=== PATIENT | female | born 2005 | race Caucasian/White ===

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

== ENCOUNTER → 2023-06-09 | Outpatient (CLI) | payer OTHER, MEDICAID, SELFPAY ==
--- NOTE | 2023-06-09 17:00 | RAD_ITS ---
INDICATION: ABDOMINAL PAIN EXAMINATION/TECHNIQUE: X-RAY - XR Abdomen 1 View COMPARISON: FINDINGS: Single supine view. The bowel gas pattern is normal. There is no bowel obstruction. Sensitivity for free air limited on supine view. No abnormal mass or calcification is seen. The lung bases are clear. RAD/Abdomen Single View IMPRESSION: Non-obstructive bowel gas pattern. Electronically Signed: Teresita Jaimes MD at 6:33 EDT ,
== END | disposition home or self-care (01) ==
PROVIDERS: PCP Pediatrics; Referring Provider Pediatrics; Visit Provider Pediatrics
DX: R10.9 Unspecified abdominal pain (principal)
CPT/HCPCS: 74018

== ENCOUNTER 2025-09-15 17:38 | Emergency (ER) | payer OTHER, SELFPAY ==
[2025-09-15 17:39] VITALS: BP 122/86; PULSE 119; RESP 16; TEMP 37.4; O2SAT 99; BMI 17.6
--- NOTE | 2025-09-15 19:23 | EX.ED.GENINJ ---
HPI History of Present Illness Chief Complaint: Nausea/Vomiting [facility] Medical History (Updated 09/15/25 @ 19:26 by Salud Sanches) Depression ADHD Home Medications ?Medication ?Instructions ?Recorded ?Last Taken ?Type albuterol sulfate 90 mcg/actuation inhalation 09/15/25 Unknown History aerosol inhaler metoclopramide HCl 5 mg tablet 5 mg PO Q8H PRN nausea and 09/15/25 Unknown Rx (Reglan) vomiting 7 days #20 tabs Allergy/AdvReac Type Severity Reaction Status Date / Time loratadine (From Claritin) Allergy Mild Hives Verified 09/15/25 17:40 Family History no significant family his Surgical History History of tonsillectomy and adenoidectomy Social History (Updated 09/15/25 @ 19:26 by Salud Sanches) household members: significant other housing: apartment Smoking Status: Current every day smoker tobacco type: e-cigarettes substance use type: does not use EXAM Physical Exam Const Vital Signs: 09/15/25 17:39 09/15/25 19:53 09/15/25 21:00 Temperature 99.3 F H Temperature Source Oral Pulse Rate 119 H 88 93 Respiratory Rate 16 20 H 16 Blood Pressure 122/86 H 110/70 115/76 Blood Pressure Mean 98 83 89 Pulse Ox 99 100 Oxygen Delivery Method Room Air Room Air [facility] MDM Narrative Medical decision making narrative: HISTORY OF PRESENT ILLNESS: Chief complaint: Nausea and vomiting 20-year-old female with no significant medical history presents with nausea and vomiting starting yesterday. She notes she communicated to local urgent care and they told her to come into the ED for IV fluids REVIEW OF SYSTEMS: Pertinent positives: Nausea and vomiting Pertinent negatives: Headache, fever, chest pain PHYSICAL EXAM: Nursing triage notes reviewed, Vital signs reviewed Constitutional: please see mdm HENT: MMM Eyes: Pupils equal round and reactive to light, Extraocular muscles intact Neck: No stridor, no JVD, full neck ROM Lungs: Clear to auscultation, No wheezing or rales. No increased work of breathing, no conversational dyspnea, no accessory muscle use, no nasal flaring. No respiratory distress noted Heart: Regular rate and rhythm, No murmurs, No rubs and No gallops, 2+ distal pulses (radial, femoral, posterior tibial) in all extremities Abdomen: Soft, there is no tenderness, rigidity, rebound or guarding, no obvious peritoneal signs, no palpable pulsatile abdominal masses, no auscultated abdominal bruit : No CVAT Extremities: No edema Neuro: No new focal neurological deficits, cranial nerves II through XII intact, 5/5 strength in all present extremities. Intact sensation to light touch in all present extremities, 2+ reflexes bilateral patella tendons. Skin: No rash or lesions noted MEDICAL DECISION MAKING: Chief Complaint: please see HPI External records reviewed: reviewed prior ED visit in which patient was prescribed Zofran 2 years ago Factors affecting care: None Social determinants of health: Denies illicit drug use, denies marijuana History obtained from others: none Consults: none [facility] Narrative: The patient was initially tachycardic with a heart rate of 119, borderline febrile with initial temperature 99.3 otherwise saturating well on room air and hemodynamically stable I considered the following differential diagnosis: Viral illness, pneumonia, dehydration I obtained a broad lab and imaging work to further determine if the patient was suffering from a life-threatening etiology. ALL IMAGES (IF OBTAINED) HAVE BEEN PERSONALLY REVIEWED AND INTERPRETED BY MYSELF. EKG with normal sinus rhythm at 83, no axis, no intervals, no STEMI CBC with no leukocytosis, no anemia or thrombocytopenia Urine test is negative COVID/flu/RSV positive for flu BMP without evidence of significant electrolyte abnormalities, no anion gap, no acute kidney injury. Urine is negative I have personally reviewed the patient's chest x-ray. Chest x-ray is unremarkable for pulmonary edema, pneumothorax, pneumonia or focal cardiopulmonary abnormality. The synthesis of the patient's history, physical exam, labs images suggest likely influenza A as a cause of her symptoms. On reevaluation the patient is able to tolerate p.o. Her initial tachycardia resolved after IV fluid hydration. She was written Reglan for home-going for nausea vomiting Introl. Strict return precaution were discussed. Work note provided The patient and/or family, caregivers express understanding. The patient and/or family, caregivers agrees with the plan. Shared decision making: I will have a discussion with the patient and or visitors regarding risk/benefits of further testing or admission. They will be made aware of of the risk/benefits inherent in this decision they will be given the opportunity to voice understanding. Total critical care time today provided was at least 0 minutes. This excludes separately billable procedures. Critical care time (if documented) is secondary to the patient having high probability of clinically significant/life threatening deterioration in the patient's condition which required my urgent intervention. Impression: 1. Nausea and vomiting 2. Dehydration 3. Influenza Dispo: Discharge home This note was generated with [employer] dictation software. It may contain incorrect words, spelling, and punctuation that were not noted in review of the chart prior to signing. Lab Data Labs: Laboratory Results - last 24 hr 09/15/25 09/15/25 19:43 19:49 WBC 2.5 L RBC 4.30 Hgb 13.8 Hct 39.5 MCV 91.9 MCH 32.1 H MCHC 34.9 RDW Std Deviation 40.3 RDW Coeff of Angela 12.2 Plt Count 143 L MPV 10.7 Immature Gran % (Auto) 0.400 Neut % (Auto) 50.0 Lymph % (Auto) 29.0 [place] % (Auto) 19.4 H Eos % (Auto) 0.8 Baso % (Auto) 0.4 Absolute Neuts (auto) 1.2 L Absolute Lymphs (auto) 0.72 L Nucleated RBC % 0 Sodium 138 Potassium 4.3 Chloride 103 Carbon Dioxide 25.2 Anion Gap 10 BUN 10 Creatinine 0.82 Estim Creat Clear Calc 86.81 Est GFR (MDRD) Non-Af 103 BUN/Creatinine Ratio 12.5 Glucose 68 L Calcium 9.3 Urine Test Negative Radiography Diagnostic Testing: Clinical Impression(s) from Imaging Studies Chest X-Ray 09/15/25 20:00 IMPRESSION: No Acute Findings. Reading Location: [facility] Discharge Plan Triage Chief Complaint: Nausea/Vomiting ED Provider: Nicolas Steiner Dx/Rx/DC Orders Instructions: ED Influenza (Adult) Prescriptions: New metoclopramide HCl [Reglan] 5 mg tablet 5 mg PO Q8H PRN (Reason: nausea and vomiting) 7 Days Qty: 20 0RF No Action albuterol sulfate 90 mcg/actuation HFA aerosol inhaler inhalation Primary Care Provider: Ani Link Referrals: Ani Link MD [Primary Care Provider, Pediatrics] Activity Restrictions/Additional Instructions: Thank you for trusting us with your care today! Your labs images are consistent with influenza. Influenza should run its course in approximately 7 to 14 days. Please take Reglan as needed for nausea vomiting control. Please try to increase your hydration Please take Tylenol (2 pills, 650 mg), ibuprofen (2 pills, 400 mg) every 6 hours as needed for pain and fever control. Please return to the emergency department if your symptoms change or worsen. Specifically if develop shortness of breath or if you lose consciousness. Please follow with your primary care physician for further outpatient evaluation and management. Print Language: Mongolian Disposition Disposition: Home, Self Care
--- NOTE | 2025-09-15 19:31 | EKG12_ITS ---
Test Reason : NAUSEA Blood Pressure : */* mmHG Vent. Rate : 83 BPM Atrial Rate : 83 BPM P-R Int : 136 ms QRS Dur : 86 ms QT Int : 360 ms P-R-T Axes : * 79 32 degrees QTcB Int : 423 ms Normal sinus rhythm Normal ECG Confirmed by Victor Manuel Hernandez ([id number]), science editor RUY LIND ([id number]) on 09/22/2025 6:50:09 AM Referred By: STEVE Confirmed By: Victor Manuel Hernandez
[2025-09-15] MEDS: 0.9% Normal Saline (1000mL) 1,000 ML 999 ML IV (19:48)
[2025-09-15 19:53] VITALS: BP 110/70; PULSE 88; RESP 20
[2025-09-15 19:56] LABS: Hematocrit 39.5 % (37-47); Hemoglobin 13.8 g/dL (12.0-15.0); Immature Granulocytes Count 0.010 X10^3/uL (0.0-0.0); Mean Corp Hgb Conc 34.9 g/dL (32-36); Mean Corpuscular Volume 91.9 fL (81-99); Mean Platelet Vol. 10.7 fl (6.2-12.0); NRBC Flagged by Analyzer 0 % (0-5); Platelet Count 143 K/mm3 (150-450); RBC Distribution Width CV 12.2 % (11.6-14.6); RBC Distribution Width SD 40.3 fl (35.1-43.9); Red Blood Count 4.30 M/mm3 (4.2-5.4); White Blood Count 2.5 K/mm3 (4.4-11.0)
[2025-09-15 20:00] LABS: Internal QC Validated? YES +Cl - CLEAR BKGD
--- NOTE | 2025-09-15 20:00 | RAD_ITS ---
PROCEDURE: CHEST 1 VIEW (PORTABLE) 09/15/2025 REASON FOR EXAM: COUGH TECHNIQUE: Frontal view of the chest. COMPARISON: None available. FINDINGS: Hardware: None. Heart: The heart size is normal. Lungs: The lungs are clear. No pneumothorax or pleural effusion. Bones: The bones are unremarkable. RAD/Chest 1 View (Portable) IMPRESSION: No Acute Findings. Reading [facility]
[2025-09-15 20:01] LABS: Pregnancy, Urine Negative Negative
--- OUTSIDE RECORDS SUMMARY | 2025-09-15 20:02 | XMS RPT_ITS | CCD ---
Author Organization [facility] Inform ion Partnership [facility] Care Team Providers Care Terrazzo Polisher Name Role Phone SONIA HERNANDEZ, DR ANI Martinez Primary Care Physician Ani Link Primary Care Provider Ani Link Primary Care Provider Ani Link Primary Care Provider Ani Link Primary Care Unavailable Jason Peck Attending Unavailable Ani Link Primary Care Unavailable Derrick Huitron Attending Unavailable Ani Link Primary Care Unavailable aCmilo Manuel Attending Unavailable Ani Link MD Primary Care Provider Ovi NUÑEZ-Rena VILLANUEVA Unavailable BHARGAVI JACKSON Attending Unavailable ANI LINK Primary Care Unavailable REFERRED, SELF Referring Unavailable REFERRED, SELF Referring Unavailable ANI LINK Attending Unavailable ANI LINK Primary Care Unavailable BHARGAVI JACKSON Referring Unavailable BHARGAVI JACKSON Attending Unavailable ANI LINK Primary Care Unavailable Ani Link MD Primary Care Provider ALESIA MCCLOUD Referring Unavailable ANI LINK Primary Care Unavailable ANI LIKN Primary Care Unavailable ALESIA MCCLOUD Attending Unavailable ANI LINK Primary Care Unavailable LIDIA LEAL Attending Unavailable Allergies Allergy Classification Reported Allergen(s) Allergy Type Date of Onset Reaction(s) Facility (12 sources) Loratadine; Translations: [LORATADINE] Drug Allergy 02-17-2007 [facility] Work Phone: Medications Current Medications Medication Drug Class(es) Dates Sig (Normalized) Sig (Original) [id number] 200 actuat albuterol 0.09 mg/actuat metered dose inhaler (8 sources) beta2-Adrenergic Agonist Start: 07-29-2021 take 2 puff(s) by inhalation every four hours as needed for wheezing albuterol HFA (PROVENTIL HFA, VENTOLIN HFA) 90 mcg/actuation inhaler Indications: Viral URI with cough , Wheezing Inhale 2 Puffs as instructed every 4 hours as needed for wheezing/shortness of breath. 1 Each 07/29/2021 Active Comment on above: Inhale 2 Puffs as in structed every 4 hours as needed for wheezing/shortness of breath. cephalexin 500 mg oral capsule (1 source) Cephalosporin Antibacterial Start: 05-16-2024 End: 05-23-2024 take 1 capsule by mouth three times daily cephALEXin (KEFLEX) 500 mg capsule Indications: Skin infection Take 1 capsule by mouth three times a day for 7 days. 21 capsule 05/16/2024 05/23/2024 Active ibuprofen 600 mg oral tablet (1 source) Nonsteroidal Anti-inflammatory Drug Start: 07-30-2020 take 1 tablet by mouth every six hours for pain ibuprofen (MOTRIN) 600 MG tablet take 1 tablet by mouth every 6 hours if needed for pain for UP TO 7 DAYS 0 07/30/2020 Active mupirocin 0.02 mg/mg topical ointment (1 source) RNA Synthetase Inhibitor Antibacterial Start: 05-16-2024 End: 05-26-2024 mupirocin (BACTROBAN) 2 % ointment Indications: Skin infection Apply to affected area three times a day for 10 days. 22 g 05/16/2024 05/26/2024 Active omeprazole 20 mg delayed release oral capsule (1 source) Proton Pump Inhibitor Start: 05-22-2021 take 1 capsule by mouth once daily omeprazole (PRILOSEC) 20 MG capsule Take 1 Capsule (20 mg) by mouth daily 30 Capsule 2 05/22/2021 Active ondansetron 4 mg disintegrating oral tablet (4 sources) Serotonin-3 Receptor Antagonist Start: 09-30-2023 take 1 tablet by mouth every eight hours as needed ondansetron orally disintegrating (ZOFRAN ODT) 4 mg disintegrating tablet Take 1 tablet by mouth every 8 hours as needed. 12 tablet 09/30/2023 Active Start: 12-29-2022 take 4 mg by mouth e very eight hours as needed Ondansetron Active 4 MG PO EVERY 8 HOURS NEEDED December 29, 2022 12:00am ondansetron HCl (ZOFRAN ORAL) Take by mouth. 0 Active Comment on above: Take by mouth. polyethylene glycol 3350 53817 mg powder for oral solution (4 sources) Osmotic Laxative Start: 06-09-2023 polyethylene glycol (MIRALAX;GLYCOLAX) 17 GM/SCOOP powder 0 06/09/2023 Active Start: 06-08-2023 polyethylene g lycol 3350 (MIRALAX) 17 gram/dose powder Indications: Acute constipation 17 grams a day mixed with water 510 g 06/08/2023 Active Comment on above: 17 grams a day mixed with water Zoloft (1 source) Serotonin Reuptake Inhibitor Start: 08-12-2018 Zoloft Oral, qDay Start Date: 08/12/18 Status: Ordered Completed/Discontinued Medications Medication Drug Class(es) Dates Sig (Normalized) Sig (Original) 12 hr dextromethorphan hydrobromide 60 mg / guaiFENesin 1200 mg extended release oral tablet (5 sources) Uncompetitive Z-hjblnr-K-aspartat e Receptor Antagonist, Sigma-1 Agonist Start: 07-29-2021 take 60-1200 mg by mouth every twelve hours Dextromethorpha n-guaiFENesin (MUCINEX DM) 60-1,200 mg tab ER 12 hr Indications: Viral URI with cough Take 1 tablet by mouth twice daily. 30 tablet 0 07/29/2021 Active Comment on above: Take 1 tablet by [facility] twice daily. Problems Active Problems Problem Classification Problem Date Documented Da te Episodic/Chronic Abdominal pain (7 sources) Abdominal pain; Translations: [Unspecified abdominal pain] Onset: 08-08-2022 Episodic Attention-deficit, conduct, and disruptive behavior disorders (10 sources) Attention deficit hyperactivity disorder; Translations: [Attention-deficit hyperactivity disorder, unspecified type] Onset: 09-04-2009 09-04-2009 Chronic Chronic obstructive pulmonary disease and bronchiectasis (1 source) Bronchitis, not specified as acute or chronic; Translations: [Sinobronchitis] Onset: 06-21-2025 Episodic Immunizations and screening for infectious disease (2 sources) Patient encounter status; Translations: [Encounter for screening for infections with a predominantly sexual mode of transmission] Episodic Menstrual disorders (2 sources) Dysmenorrhea; Translations: [Dysmenorrhea, unspecified] 08-07-2022 Chronic Open wounds of extremities (4 sources) Laceration of hand; Translations: [Laceration without foreign body of unspecified hand, initial encounter] Onset: 04-18-2022 04-22-2022 Episodic Other circulatory disease (1 source) Other specified symptoms and signs involving the circulatory and respiratory systems; Translations: [Rhonchi] Onset: 06-21-2025 Episodic Other gastrointestinal disorders (1 source) Acute constipation; Translations: [Constipation, unspecified] 06-08-2023 Episodic Other injuries and conditions due to external causes (1 source) Injury of right leg; Translations: [Unspecified injury of right lower leg, initial encounter] 05-16-2024 Episodic Other injuries and conditions due to external causes (2 sources) Injury of left knee; Translations: [Unspecified injury of left lower leg, initial encounter] 05-16-2024 Episodic Other non-traumatic joint disorders (1 source) Pain in right knee; Translations: [Pain in joint, lower leg] 12-19-2021 Episodic Other non-traumatic joint disorders (1 source) Pain in right shoulder; Translations: [Pain in joint, shoulder region] 07-30-2020 Episodic Other upper respiratory infections (1 source) Chronic sinusitis, unspecified; Translations: [Sinobronchitis] Onset: 06-21-2025 Chronic Other upper respiratory infections (2 sources) Acute upper respiratory infection; Translations: [Acute upper respiratory infection, unspecified] Onset: 12-23-2021 Episodic Skin and subcutaneous tissue infections (1 source) Infection of skin; Translations: [Local infection of the skin and subcutaneous tissue, unspecified] 05-16-2024 Episodic Superficial injury; contusion (3 sources) Contusion of hand; Translations: [Contusion of right hand, initial encounter] 11-18-2017 Episodic Past or Other Problems Problem Classification Problem Date Documented Da te Episodic/Chronic Nausea and vomiting (3 sources) Nausea; Translations: [Nausea] Onset: 02-10-2025 Episodic Residual codes; unclassified (9 sources) Sleep disorder; Translations: [Sleep disorder, unspecified] Onset: 09-04-2009 09-04-2009 Episodic Results Test Name Value Interpretation Reference Range Facility [facility] 06-21-2025 CNOV Office Visit ([facility]) MARE MANDUJANO ([id number]) 1 F Date Time Provider Department 06/21/25 1:45 PM ALESIA MCCLOUD During your visit today, we recorded the following information about you: Temperature Pulse Respiration Blood pressure 98.1 degrees 120/minute 18/minute 122/80 Weight Last Period 52 kg 11/30/22 Alesia Mccloud APRN.MUD ENGINEER 06/21/2025 3:02 PM Signed [facility] Subjective HPI HPI Mare Mandujano is a 20 year old female who presents today for CC of cough, wheezing, sob, congestion. This started 1.5 weeks ago. Has tried otc medication for relief. Symptoms are worsened by nothing. Risk factors sick exposures. Smoker. Denies possibility of being . .Patient presents with: Cough: Chest congestion x1.5 weeks PAST MEDICAL HISTORY Diagnosis Date ADHD (attention deficit hyperactivity disorder) No past surgical history on file. ALLERGIES Claritin [Loratadine] MEDICATIONS ondansetron orally disintegrating (ZOFRAN ODT) 4 mg disintegrating tablet Take 1 tablet by mouth every 8 hours as needed. (Patient not taking: Reported on 06/21/2025) polyethylene glycol 3350 (MIRALAX) 17 gram/dose powder 17 grams a day mixed with water (Patient not taking: Reported on 06/21/2025) albuterol HFA (PROVENTIL HFA, VENTOLIN HFA) 90 mcg/actuation inhaler Inhale 2 Puffs as instructed every 4 hours as needed for wheezing/shortness of breath. (Patient not taking: Reported on 12/19/2021 ) FAMILY HISTORY Problem Relation Age of Onset Cervical Cancer Mother Allergies Father Allergies Mother Cancer Paternal Grandmother Cancer Asthma Mother SOCIAL HISTORY[1] Review of Systems Constitutional: Negative for chills, fatigue and fever. HENT: Positive for rhinorrhea and sore throat. Negative for ear discharge, ear pain, sinus pressure and sinus pain. Eyes: Negative for discharge and redness. Respiratory: Positive for cough, shortness of breath and wheezing. Cardiovascular: Negative for chest pain. Skin: Negative for rash. Objective BP 122/80 Pulse 120 Temp 36.7 ?C (98.1 ?F) Resp 18 Wt 52 kg (114 lb 10.2 oz) LMP 11/30/2022 SpO2 97% Physical Exam Constitutional: General: She is not in acute distress. Appearance: She is not toxic-appearing or diaphoretic. HENT: Head: Normocephalic and atraumatic. Cardiovascular: Rate and Rhythm: Normal rate and regular rhythm. Heart sounds: Normal heart sounds, S1 normal and S2 normal. Pulmonary: Effort: Pulmonary effort is normal. Breath sounds: Wheezing (scattered bilat) and rhonchi (scattered bilat) present. No decreased breath sounds or rales. Neurological: Mental Status: She is alert and oriented to person, place, and time. {ASSESSMENT/PLAN: 1. Sinobronchitis - ICD9: 473.9, 490, ICD10: J32.9, J40 (primary diagnosis) - Will begin treatment with as per antibiotic as written, see orders - Supportive care with plenty of fluids, rest, and analgesia prn. - Follow up in 3-5 days if symptoms persist or worsen. - DOXYCYCLINE MONOHYDRATE 100 MG TABLET - PREDNISONE 10 MG TABLET - ALBUTEROL SULFATE HFA 90 MCG/ACTUATION AEROSOL INHALER 2. Rhonchi - ICD9: 786.7, ICD10: R09.89 - XR CHEST 2V FRONTAL/LAT IMPRESSION: No acute radiographic abnormality. Dictated by : MD Alesia SYLVESTER APRN.MUD ENGINEER History and Record Review External record(s) reviewed: prior outpatient record. Disposition The patient was discharged. Procedures [1] Social History Tobacco Use Smoking status: Every Day Passive exposure: Yes Smokeless tobacco: Current Tobacco comments: Vape Substance Use Topics Alcohol use: Never Drug use: Never Allergies As of Date: 06/21/2025 Noted Allergy Reaction CLARITIN (LORATADINE) 02/17/2007 4 - Hives Date Reviewed: 06/21/2025 Reviewed by: Rolan, Roxy, MA - Fully Assessed Reason for Visit: Cough [28] Cmt: Chest congestion x1.5 weeks Primary Visit Diagnosis:Sinobronchi tis [J32.9, J40] Other Visit Diagnosis:Rhonchi [R09.89] Order(s):XR CHEST 2V FRONTAL/LAT [[id number]] Order #: [id number]. #:[id number] doxycycline monohydrate 100 mg tabletTake 1 tablet by mouth two times a day for 7 days.Disp: 14 tabletRfl: 0 predniSONE (DELTASONE) 10 mg tabletTake 3 tablets by mouth once daily for 5 days. Take daily with food.Disp: 15 tabletRfl: 0 albuterol HFA (PROVENTIL HFA, VENTOLIN HFA) 90 mcg/actuation inhalerInhale 2 puffs as instructed every 4 hours as needed for wheezing/shortness of breath.Disp: 8 gRfl: 0 Prescriptions as of 06/21/2025 - doxycycline monohydrate 100 mg tablet Take 1 tablet by mouth two times a day for 7 days. - predniSONE (DELTASONE) 10 mg tablet Take 3 tablets by mouth once daily for 5 days. Take daily with food. - albuterol HFA (PROVENTIL HFA, VENTOLIN HFA) 90 mcg/actuation inhaler Inhale 2 puffs as instructed every 4 hours as needed for wheezing/shortne (more content not included)... Normal [facility] XR CHEST 2V FRONTAL/LATon XR CHEST 2V FRONTAL/LAT * * *Final Report* * * DATE OF EXAM: Jun 21 2025 2:03PM WOX 5291 - XR CHEST 2V FRONTAL/LAT / PROCEDURE REASON: Rhonchi * * * * Physician Interpretation * * * * EXAMINATION: CHEST RADIOGRAPH (2 VIEW FRONTAL and LATERAL) CLINICAL HISTORY: Rhonchi MQ: XC2_6 EXAM DATE/TIME: 06/21/2025 2:03 PM COMPARISON: No relevant prior studies available. RESULT: Lines, tubes, and devices: None. Lungs and pleura: No consolidation. No lung mass. No pleural effusion. No pneumothorax. Cardiomediastinal silhouette: Normal cardiomediastinal silhouette. Bones and soft tissues: Unremarkable. IMPRESSION: No acute radiographic abnormality. Inspector Bullet Slugs: KASIA Transcribe Date/Time: Jun 21 2025 2:05P Dictated by : WALLY LUZ MD This examination was interpreted and the report reviewed and electronically signed by: WALLY LUZ MD on Jun 21 2025 2:05PM EST [id number] Normal [facility] CNOVon 02-10-2025 CNOV Office Visit ([facility] ) MARE MANDUJANO ([id number]) 1 F Date Time Provider Department 02/10/25 5:15 PM [facility] During your visit today, we recorded the following information about you: Temperature Pulse Respiration Blood pressure 97.5 degrees 87/minute 18/minute 120/80 Weight 53.8 kg Lidia Leal APRN.MUD ENGINEER 02/10/2025 5:26 PM Signed [facility] Subjective Mare Mandujano is a 19 year old female. Patient presents with: Abdominal Pain: Lower abdominal pain x1 day HPI Nausea and Abdominal Pain: - Onset yesterday; feels better today. - Able to drink water today without emesis; has not eaten yet. - Urination is normal. - Symptoms are intermittent. - Describes abdominal discomfort as cramping. - Attributes symptoms to a gut issue and possible illness from classmates. - Suspects inadequate water intake may contribute to symptoms. Review of Systems Constitutional: (+) generalized discomfort Gastrointestinal: (+) nausea, (+) abdominal cramping, (-) vomiting, (-) severe pain Genitourinary: (-) urinary complaints Objective BP 120/80 Pulse 87 Temp 36.4 ?C (97.5 ?F) Resp 18 Wt 53.8 kg (118 lb 9.7 oz) LMP 11/30/2022 SpO2 98% Physical Exam General: No acute distress. Resp: Clear breath sounds bilaterally. Abd: Normoactive bowel sounds; mild discomfort with palpation, no severe pain. {1. Nausea (R11.0) - Symptoms improved today; able to tolerate water intake, no emesis reported. - Abdominal exam reveals normal bowel sounds, mild discomfort with palpation, no severe tenderness. - Advised rest, adequate hydration, and gradual introduction of bland foods. - Provided work note. and Recording using weeSpring software for draft documentation of the visit was discussed with the patient/authorized business services representative; all questions welcomed and answered. Patient/authorized business services representative agreed to proceed MDM Procedures Allergies As of Date: 02/10/2025 Noted Allergy Reaction CLARITIN (LORATADINE) 02/17/2007 4 - Hives Date Reviewed: 02/10/2025 Reviewed by: Mellissa Patel LPN - Fully Assessed Reason for Visit: Abdominal Pain [1] Cmt: Lower abdominal pain x1 day Visit Diagnosis:Nausea [R11.0] Prescriptions as of 02/10/2025 - ondansetron orally disintegrating (ZOFRAN ODT) 4 mg disintegrating tablet Take 1 tablet by mouth every 8 hours as needed. - polyethylene glycol 3350 (MIRALAX) 17 gram/dose powder 17 grams a day mixed with water - albuterol HFA (PROVENTIL HFA, VENTOLIN HFA) 90 mcg/actuation inhaler Inhale 2 Puffs as instructed every 4 hours as needed for wheezing/shortness of breath. Problem List As Of Date 02/10/2025 Noted Resolved Sleep Disorder [G47.9] 09/04/2009 ADHD (Attention Deficit Hyperactivity Disorder)*09/04/2009 Letter Text Encounter Status:Closed by LIDIA LEAL on 02/10/25 Normal [facility] No Panel Informationon 05-16 IMPRESSION: No acute osseous abnormality Inspector Bullet Slugs: KASIA Transcribe Date/Time: May 16 2024 2:06P Dictated by : ABIODUN CAMEJO MD This examination was interpreted and the report reviewed and electronically signed by: ABIODUN CAMEJO MD on May 16 2024 2:09PM [facility] DIVISION OF RADIOLOGY Radiology Study observation (narrative) [facility] No Panel InformationOrdered By: [facility]cf Provider on 05-16-2024 [facility] XR Knee - left 4 Viewson * * *Final Report* * * DATE OF EXAM: May 16 2024 2:03PM WOX 5202 - XR KNEE 4V AP/PA BOTH+LAT/LACHO LT / PROCEDURE REASON: Injury of left knee, initial encounter * * * * Physician Interpretation * * * * EXAMINATION: XR KNEE 4V AP/PA BOTH+LAT/LACHO LT, XR TIBIA FIBULA 2V AP/LAT RT CLINICAL HISTORY: Right lower extremity pain after trauma Technique: XR KNEE 4V AP/PA BOTH+LAT/LCAHO LT, XR TIBIA FIBULA 2V AP/LAT RT -- LEFT (accession [id number]), RIGHT (accession [id number]) with 4 (accession [id number]), 2 (accession [id number]) views on 4 (accession [id number]), 2 (accession [id number]) images Comparison: None RESULT: No acute fracture or dislocation. Joint spaces are maintained. DIVISION OF RADIOLOGY Provider, [facility] - 05/16/2024 * * *Final Report* * * DATE OF EXAM: May 16 2024 2:03PM WOX 5202 - XR KNEE 4V AP/PA BOTH+LAT/LACHO LT / PROCEDURE REASON: Injury of left knee, initial encounter * * * * Physician Interpretation * * * * EXAMINATION: XR KNEE 4V AP/PA BOTH+LAT/LACHO LT, XR TIBIA FIBULA 2V AP/LAT RT CLINICAL HISTORY: Right lower extremity pain after trauma Technique: XR KNEE 4V AP/PA BOTH+LAT/LACHO LT, XR TIBIA FIBULA 2V AP/LAT RT -- LEFT (accession [id number]), RIGHT (accession [id number]) with 4 (accession [id number]), 2 (accession [id number]) views on 4 (accession [id number]), 2 (accession [id number]) images Comparison: None RESULT: No acute fracture or dislocation. Joint spaces are maintained. IMPRESSION IMPRESSION: No acute osseous abnormality Inspector Bullet Slugs: PSCB Transcribe Date/Time: May 16 2024 2:06P Dictated by : ABIODUN CAMEJO MD This examination was interpreted and the report reviewed and electronically signed by: ABIODUN CAMEJO MD on May 16 2024 2:09PM [facility] XR Tibia and Fibula - right AP and Lateralon 05-16-2024 * * *Final Report* * * DATE OF EXAM: May 16 2024 2:03PM WOX 5266 - XR TIBIA FIBULA 2V AP/LAT RT / PROCEDURE REASON: Injury of right lower extremity, initial encounter * * * * Physician Interpretation * * * * EXAMINATION: XR KNEE 4V AP/PA BOTH+LAT/LACHO LT, XR TIBIA FIBULA 2V AP/LAT RT CLINICAL HISTORY: Right lower extremity pain after trauma Technique: XR KNEE 4V AP/PA BOTH+LAT/LACHO LT, XR TIBIA FIBULA 2V AP/LAT RT -- LEFT (accession [id number]), RIGHT (accession [id number]) with 4 (accession [id number]), 2 (accession [id number]) views on 4 (accession [id number]), 2 (accession [id number]) images Comparison: None RESULT: No acute fracture or dislocation. Joint spaces are maintained. DIVISION OF RADIOLOGY Provider, [facility] - 05/16/2024 * * *Final Report* * * DATE OF EXAM: May 16 2024 2:03PM WOX 5266 - XR TIBIA FIBULA 2V AP/LAT RT / PROCEDURE REASON: Injury of right lower extremity, initial encounter * * * * Physician Interpretation * * * * EXAMINATION: XR KNEE 4V AP/PA BOTH+LAT/LACHO LT, XR TIBIA FIBULA 2V AP/LAT RT CLINICAL HISTORY: Right lower extremity pain after trauma Technique: XR KNEE 4V AP/PA BOTH+LAT/LACHO LT, XR TIBIA FIBULA 2V AP/LAT RT -- LEFT (accession [id number]), RIGHT (accession [id number]) with 4 (accession [id number]), 2 (accession [id number]) views on 4 (accession [id number]), 2 (accession [id number]) images Comparison: None RESULT: No acute fracture or dislocation. Joint spaces are maintained. IMPRESSION IMPRESSION: No acute osseous abnormality Inspector Bullet Slugs: KASIA Transcribe Date/Time: May 16 2024 2:06P Dictated by : ABIODUN CAMEJO MD This examination was interpreted and the report reviewed and electronically signed by: ABIODUN CAMEJO MD on May 16 2024 2:09PM [facility] Progress Noteon 10-26-2023 [employer] Sergeant Authentication Interface Message Text Patient ID: Mare Mandujano is a 18 y.o. female. Her chief complaint(s) include: 18 YEAR WELL CHILD Assessment 1. Routine general medical examination at a health care facility 2. Acute vulvitis 3. control counseling 4. Gastroesophageal reflux disease without esophagitis 5. Pharyngitis, unspecified etiology 6. Anxiety with depression Plan Mare was seen today for 18 year well child. Diagnoses and associated orders for this visit: Routine general medical examination at a health care facility - PHQ9 Assessment With Score - Health Risk Assessment - TOSHA Acute vulvitis - AMB Referral To Obstetrics/Gynecology ; Future - nystatin (MYCOSTATIN) 195527 UNIT/GM OINT ointment; Apply to affected area 4 times daily for 14 days control counseling - AMB Referral To Obstetrics/Gynecology ; Future Gastroesophageal reflux disease without esophagitis - omeprazole (PRILOSEC) 20 MG capsule; Take 1 Capsule (20 mg) by mouth daily Pharyngitis, unspecified etiology - POCT ID NOW Rapid Strep A NAAT-Throat Only Anxiety with depression Discussed diet and exercise. Anticipatory guidance issues reviewed. Patient provided with list of counselors available that may help with her anxiety and depression. She denies any current suicidal thoughts or ideations but will want to monitor patient closely. Discussed need to try to limit or stop vaping and using the marijuana. Patient using these above to help manage stress and anxiety. She also complains of abdominal discomfort which in part may be due to use of the marijuana but had prescribed prilosec in the past which patient never tried. She is interested in seeing if helps with her abdominal pain so sent a new prescription for the prilosec in. Instructed to call if not seeing improvement with the medication. Anticipatory guidance issues reviewed. Patient referred to dinking machine operator to further discuss control that may work for her. She had side effects from last control. Did start patient on some topical nystatin to help with labial irritation. Also instructed patient to hold on shaving for now to allow area to heal. If going to continue to shave pubic area, instructed to make sure use razor that is sharp and clean. Patient also with pharyngitis. Strep test was negative. Will treat symptoms. Return in about 1 year (around 10/26/2024) for well check. Subjective She is unaccompanied. 18 YEAR WELL CHILD Home: Mare has an adult to turn to for help and is permitted and able to make independent decisions (planning to move out on her own). Mare does not eat meals with family, has no home risk identified and does not pay the bills. Education: Mare is in the work force. Eating: Mare eats regular meals including fruits and vegetables (poor appetite), eats breakfast (try to), drinks non-sweetened liquids and has a calcium source. Mare does not limit fast food (working on it: if eats out, will choose healthier options). Activities & Sports: Mare has a job ([employer] and will start at [employer]) and performs at least 1 hour of physical activity daily. Mare engages in screen time more than 2 hours daily, does not play team sports and does not have drivers license (has her school bus driver/mechanic's permit, gets around with her electric scooter). Drugs: Mare uses drugs (marijuana), uses alcohol (very seldom) and does vape. Mare does not use tobacco. Safety: Mare has a violence free home, has peer relationships free from violence and uses seat belt. Mare does not use helmet. Sex: The patient has a sexual partner. The patient is interested in both males and females. The patient's sexual orientation is bisexual. The patient's gender identity is cisgender. Typically, the patient uses condoms as current contraceptive method. (Patient off control currently/). The patient has not had an STD. STD screening completed within the last year. Suicidality: Mare has ways to cope with stress (some but not all are healthy), displays self-confidence (improving), has depression and has anxiety (more of an issue). Mare has no problems with sleep, has no suicidal ideation, has no homicidal ideation and is not engaged in counseling (patient admits to need of some counseling). PHQ-9 Score: 11 Menstruation (Menarche: age 10 LMP: 10/21/23) Menstruation: regular periods Output Urine and Stool Pattern: Urine and Stool Pattern: Normal stool pattern, constipation (sometimes diarrhea (patient thinks she may have irritable bowel syndrome)), normal urine pattern, no nocturnal enuresis. Stool Consistency: hard/firm Sleep Sleeping Difficulty: no difficulty sleeping Hours of sleep at a time: 8 Teen Anticipatory Guidance The following anticipatory guidance was reviewed during the visit: Nutrition: limit junk food/fast food and soft drinks. Safety: home safety and use safety helmet/gear with activities. Social: avoid or limit screen time and parental allan (more content not included)... Normal [facility] C-Reactive Proteinon 023 CRP [Mass/Vol] mg/L Normal 0.0-1.0 [facility] Comment on above: Order Comment: Relea se to patient->Automatic [id number]&Blood Result Comment: CRP determinations in neonates should be interpreted with caution. CRP may be elevated in circumstances not associated with inflammation (e.g. difficult delivery, pneumothorax). In premature neonates CRP levels may not rise to abnormal levels even if sepsis is present; some speculate that immature liver function decreases the ability to generate a CRP response. Performed By: #### C RP #### [place] [address] Comp Metabolic Panelon 06-10 Glucose [Mass/Vol] 82 mg/dL Normal 70-99 [facility] Comment on above: Order Comment: Relea se to patient->Automatic [id number]&Blood Result Comment: Crit gela for Diagnosis of Diabetes: Fasting Specimen (no caloric intake for at least 8 hours): <100 mg/dL Normal 100-125 mg/dL Increased risk for Diabetes >125 mg/dL Diagnostic for Diabetes Random Glucose (any time of day without regard to last meal): > or = 200 mg/dL plus Classic Symptoms of Diabetes Performed By: #### C MP #### [place] [address] Protein [Mass/Vol] 7.5 g/dL Normal 5.9-8.4 [facility] Comment on above: Order Comment: Relea se to patient->Automatic 67593&Blood Performed By: #### C MP #### [place] [address] Urea nitrogen [Mass/Vol] 10 mg/dL Normal 4-19 [facility] Comment on above: Order Comment: Relea se to patient->Automatic 19996&Blood Performed By: #### C MP #### [address] [place] [address] Albumin [Mass/Vol] 5.1 g/dL High 3.5-5.0 [facility] Comment on above: Order Comment: Relea se to patient->Automatic 65825&Blood Performed By: #### C MP #### [address] [place] [address] ALP [Catalytic activity/Vol] 49 U/L Normal 35-104 [facility] Comment on above: Order Comment: Relea se to patient->Automatic 62678&Blood Performed By: #### C MP #### [address] [place] [address] ALT [Catalytic activity/Vol] 10 U/L Normal 0-34 [facility] Comment on above: Order Comment: Relea se to patient->Automatic 92287&Blood Performed By: #### C MP #### [address] [place] [address] AST [Catalytic activity/Vol] 18 U/L Normal 0-31 [facility] Comment on above: Order Comment: Relea se to patient->Automatic 51030&Blood Performed By: #### C MP #### [address] [place] [address] Bili,Total 0.7 mg/dL Normal 0.0-1.0 [facility] Comment on above: Order Comment: Relea se to patient->Automatic 33324&Blood Performed By: #### C MP #### [address] [address] Calcium [Mass/Vol] 9.6 mg/dL Normal 7.6-11.0 [facility] Comment on above: Order Comment: Relea se to patient->Automatic 05277&Blood Performed By: #### C MP #### [address] [address] [place] [address] CO2 [Moles/Vol] 23.9 mmol/L Normal 22.0-29.0 [facility] Comment on above: Order Comment: Relea se to patient->Automatic 51779&Blood Performed By: #### C MP #### [place] [address] Creatinine [Mass/Vol] 0.67 mg/dL Normal 0.50-1.00 [facility] Comment on above: Order Comment: Relea se to patient->Automatic 56459&Blood Performed By: #### C MP #### [place] [address] Hemoglobin A1con 06-10-2023 HbA1c (Bld) [Mass fraction] 5.1 % Normal 0.0-5.6 [facility] Comment on above: Order Comment: Relea se to patient->Automatic 96572&Blood Result Comment: Refe rence Interval: <5.7% 5.7-6.4% Prediabetes > or = 6.5% Diabetes Targets for diabetes management: Type I <7.5% Type II <7.0% Performed By: #### H BA1C #### [place] [address] Immunoglobulin Aon 3 Immunoglobulin A 119 mg/dL Normal 59-337 [facility] Comment on above: Order Comment: Relea se to patient->Automatic 07676&Blood Performed By: #### I GA #### [place] [address] TSH with reflex T4FRon 06-10 TSH with reflex T4FR 1.170 uIU/mL Normal 0.300-4.200 [facility] Comment on above: Order Comment: Relea se to patient->Automatic 00382&Blood Performed By: #### T SHR #### [place] [address] Transglutaminase IgAon 06-10 Transglutaminase IgA <1.60 Normal 0.00-8.99 [facility] Comment on above: Order Comment: Relea se to patient->Automatic 31622&Blood Result Comment: NEGATIVE Interpretation of Results: Negative: <9.0 AU/mL Equivocal: 9.0-16.0 AU/mL Positive: >16.0 AU/mL Method: The anti-tTG antibodies were determined using an EDGAR-based commercially available kit (Eu-tTG [facility], [facility]). Performed By: #### T RGLA #### [place] [address] Vitamin D 25 OHon 06-10-2023 25 OH Vitamin D 26 ng/mL Low 30-100 [facility] Comment on above: Order Comment: Relea se to patient->Automatic 36212&Blood Result Comment: Refe rence ranges provided by [facility] Laboratory are based on Endocrine Society Guidelines: Level: Characterization < 21 ng/mL: Vitamin D deficiency 21-29 ng/mL: Suboptimal Vitamin D status 30-100 ng/mL: Optimal Vitamin D status >100 ng/mL: Potentially toxic Vitamin D effects Performed By: #### V 25DH #### [place] [address] C-reactive protein (Lab Millicent ect)on 06-09-2023 CRP [Mass/Vol] mg/L 0.0 - 1.0 mg/dL [facility] Comment on above: CRP determinations i n neonates should be interpreted with caution. CRP may be elevated in circumstances not associated with inflammation (e.g. difficult delivery, pneumothorax). In premature neonates CRP levels may not rise to abnormal levels even if sepsis is present; some speculate that immature liver function decreases the ability to generate a CRP response. C. trachomatis/GC PCR Panel on [facility] 06-09-2023 C. trachomatis/GC PCR Panel on [facility] Reason for preventing automatic release->Other Is this specimen being sent to an external lab?->No Release to patient->Manual release only [id number]&Urine-First Void^^^Urine&Urine C. trachomatis PCR on GeneX[facility]: NEGATIVE-Chlamydia trachomatis DNA: NOT DETECTED. Source: [facility] Collected: 06/09/23 16:11 Site: Urine Received : 06/09/23 21:49 C. trachomatis PCR on [facility] FINAL 06/09/23 23:52 NEGATIVE-Chlamydia trachomatis DNA: NOT DETECTED. - GC PCR on [facility] FINAL 06/09/23 23:57 NEGATIVE-Neisseria gonorrhea DNA: NOT DETECTED. - Method: DNA detection by RT PCR on a GeneXpert analyzer. - NOTE: This Amplified DNA Assay should not be used for the evaluation of suspected sexual abuse or for other medico-legal indications. Interpret results with caution! Volume of urine submitted for testing was greater than 50mL, which may result in reduced assay sensitivity. - Screening urine specimens for Chlamydia trachomatis and Neisseria gonorrhoeae using nucleic acid amplification is an accurate and sensitive method compared to standard techniques of detection of these pathogens. Because the pathogen is diluted in urine, it is somewhat less sensitive than a direct swab specimen evaluated by nucleic acid amplification techniques. Normal [facility] Comment on above: Performed By: #### C TNG #### [place] [address] Comp Metabolic Panelon 06-09 Chloride [Moles/Vol] 103 mmol/L Normal 96-108 [facility] Comment on above: Order Comment: Relea se to patient->Automatic [id number]&Blood Performed By: #### C MP #### [place] [address] Potassium [Moles/Vol] 4.0 mmol/L Normal 3.3-5.1 [facility] Comment on above: Order Comment: Relea se to patient->Automatic 06220&Blood Performed By: #### C MP #### [place] [address] Sodium [Moles/Vol] 139 mmol/L Normal 133-145 [facility] Comment on above: Order Comment: Relea se to patient->Automatic 35479&Blood Performed By: #### C MP #### [place] [address] Complete Blood Counton 06-09 Differential Complete Automated Normal [facility] Comment on above: Order Comment: Relea se to patient->Automatic 82930&Blood Performed By: #### C BC #### [address] [address] Basophils/100 WBC (Bld) 0.30 % Normal 0.00-1.00 [facility] Comment on above: Order Comment: Relea se to patient->Automatic 19547&Blood Performed By: #### C BC #### [address] [address] Eosinophils/100 WBC (Bld) 1.10 % Normal 0.00-3.00 [facility] Comment on above: Order Comment: Relea se to patient->Automatic 80213&Blood Performed By: #### C BC #### [address] [address] Erythrocyte distribution width (RBC) [Ratio] 12.4 % Normal 0.0-14.4 [facility] Comment on above: Order Comment: Relea se to patient->Automatic 99863&Blood Performed By: #### C BC #### [address] [address] Hematocrit (Bld) [Volume fraction] 40.8 % Normal 36.0-44.0 [facility] Comment on above: Order Comment: Relea se to patient->Automatic 19661&Blood Performed By: #### C BC #### [address] [address] Hemoglobin (Bld) [Mass/Vol] 14.1 g/dL Normal 12.0-15.0 [facility] Comment on above: Order Comment: Relea se to patient->Automatic 27243&Blood Performed By: #### C BC #### [address] [address] Immature granulocytes/100 WBC (Bld) 0.30 % Normal [facility] Comment on above: Order Comment: Relea se to patient->Automatic 87070&Blood Result Comment: Naila ture Granulocyte Percent includes promyelocytes, myelocytes, and metamyelocytes. IG% > 1.0 indicates a left shift is present. With automated differentials, bands are included in the neutrophil count and not in the Immature Granulocyte Percent. Performed By: #### C BC #### [address] [address] Lymphocytes/100 WBC (Bld) 33.8 % Normal 24.0-44.0 [facility] Comment on above: Order Comment: Relea se to patient->Automatic 60242&Blood Performed By: #### C BC #### [address] [address] MCH (RBC) [Entitic mass] 31.5 pg Normal 26.0-34.0 [facility] Comment on above: Order Comment: Relea se to patient->Automatic 18382&Blood Performed By: #### C BC #### [address] [address] MCHC 34.6 % Normal 31.0-37.0 [facility] Comment on above: Order Comment: Relea se to patient->Automatic 22278&Blood Performed By: #### C BC #### [address] [address] MCV (RBC) [Entitic vol] 91.3 fL Normal 80.0-100.0 [facility] Comment on above: Order Comment: Relea se to patient->Automatic 24497&Blood Performed By: #### C BC #### [address] [address] Monocytes/100 WBC (Bld) 6.30 % High 3.00-6.00 [facility] Comment on above: Order Comment: Relea se to patient->Automatic 98941&Blood Performed By: #### C BC #### [address] [address] Neutrophils (Bld) [#/Vol] 4.6 10*3/uL Normal 2.0-7.2 [facility] Comment on above: Order Comment: Relea se to patient->Automatic 33088&Blood Performed By: #### C BC #### [address] [address] Neutrophils/100 WBC (Bld) 58.2 % Normal 35.0-66.0 [facility] Comment on above: Order Comment: Relea se to patient->Automatic 65097&Blood Performed By: #### C BC #### [address] [address] Nucleated RBC/100 WBC (Bld) [Ratio] 0.0 % Normal -1.0-0.0 [facility] Comment on above: Order Comment: Relea se to patient->Automatic 26170&Blood Performed By: #### C BC #### [address] [address] Platelet mean volume (Bld) [Entitic vol] 11.5 fL Normal [facility] Comment on above: Order Comment: Relea se to patient->Automatic 59659&Blood Result Comment: MPV is platelet range and age dependent Performed By: #### C BC #### [address] [address] Platelets (Bld) [#/Vol] 198 10*3/uL Normal 150-450 [facility] Comment on above: Order Comment: Relea se to patient->Automatic 27080&Blood Performed By: #### C BC #### [address] [address] RBC 4.47 10E12/L Normal 4.00-4.90 [facility] Comment on above: Order Comment: Relea se to patient->Automatic 42605&Blood Performed By: #### C BC #### [facility] [address] [place] [address] WBC (Bld) [#/Vol] 7.8 10*3/uL Normal 4.5-11.0 [facility] Comment on above: Order Comment: Relea se to patient->Automatic 96224&Blood Performed By: #### C BC #### [facility] [address] [place] [address] Complete Blood Count with Di fferentialon 06-09-2023 Basophils/100 WBC (Bld) 0.30 % 0.00 - 1.00 % [facility] Differential Complete Automated Sdr on [facility] Eosinophils/100 WBC (Bld) 1.10 % 0.00 - 3.00 % [facility] Erythrocyte distribution width (RBC) [Ratio] 12.4 % 0.0 - 14.4 % [facility] Hematocrit (Bld) [Volume fraction] 40.8 % 36.0 - 44.0 % [facility] Hemoglobin (Bld) [Mass/Vol] 14.1 g/dL 12.0 - 15.0 g/dl [facility] Immature granulocytes/100 WBC (Bld) 0.30 % [facility] Comment on above: Immature Granulocyte Percent includes promyelocytes, myelocytes, and metamyelocytes. IG% > 1.0 indicates a left shift is present. With automated differentials, bands are included in the neutrophil count and not in the Immature Granulocyte Percent. Interpretation and review of laboratory results Abnormal [facility] Lymphocytes/100 WBC (Bld) 33.8 % 24.0 - 44.0 % [facility] MCH (RBC) [Entitic mass] 31.5 pg 26.0 - 34.0 pg [facility] MCHC 34.6 % 31.0 - 37.0 % [facility] MCV (RBC) [Entitic vol] 91.3 fL 80.0 - 100.0 fl [facility] Monocytes/100 WBC (Bld) 6.30 % High 3.00 - 6.00 % [facility] Neutrophils (Bld) [#/Vol] 4.6 10*3/uL [facility] Neutrophils/100 WBC (Bld) 58.2 % 35.0 - 66.0 % [facility] Nucleated RBC/100 WBC (Bld) [Ratio] 0.0 % -1.0 - 0.0 % [facility] Platelet mean volume (Bld) [Entitic vol] 11.5 fL [facility] Comment on above: MPV is platelet range and age dependent Platelets (Bld) [#/Vol] 198 10*3/uL [facility] RBC (Bld) [#/Vol] 4.47 10*6/uL [facility] WBC (Bld) [#/Vol] 7.8 10*3/uL [facility] Release to patient->Automatic [facility] LAB [facility] Comprehensive metabolic pane l (Lab Collect)on 06-09-2023 Albumin [Mass/Vol] 5.1 g/dL High 3.5 - 5.0 g/dL [facility] ALP [Catalytic activity/Vol] 49 U/L 35 - 104 U/L [facility] ALT [Catalytic activity/Vol] 10 U/L 0 - 34 U/L [facility] AST [Catalytic activity/Vol] 18 U/L 0 - 31 U/L [facility] Bilirubin [Mass/Vol] 0.7 mg/dL 0.0 - 1 .0 mg/dL [facility] Calcium [Mass/Vol] 9.6 mg/dL 7.6 - 11. 0 mg/dL [facility] Chloride [Moles/Vol] 103 mmol/L 96 - 10 8 mmol/L [facility] CO2 [Moles/Vol] 23.9 mmol/L 22.0 - 29.0 mmol/L [facility] Creatinine [Mass/Vol] 0.67 mg/dL 0.50 - 1.00 mg/dL [facility] Glucose [Mass/Vol] 82 mg/dL 70 - 99 mg/dL [facility] Comment on above: Criteria for Diagnos is of Diabetes: Fasting Specimen (no caloric intake for at least 8 hours): <100 mg/dL Normal 100-125 mg/dL Increased risk for Diabetes >125 mg/dL Diagnostic for Diabetes Random Glucose (any time of day without regard to last meal): > or = 200 mg/dL plus Classic Symptoms of Diabetes Potassium [Moles/Vol] 4.0 mmol/L 3.3 - 5.1 mmol/L [facility] Protein [Mass/Vol] 7.5 g/dL 5.9 - 8.4 g/dL [facility] Sodium [Moles/Vol] 139 mmol/L 133 - 145 mmol/L [facility] Urea nitrogen [Mass/Vol] 10 mg/dL 4 - 19 mg/dL [facility] Hemoglobin A1c (Lab Collect) on 06-09-2023 HbA1c Elph (Bld) [Mass fraction] 5.1 % 0.0 - 5.6 % [facility] Comment on above: Reference Interval: <5.7% 5.7-6.4% Prediabetes > or = 6.5% Diabetes Targets for diabetes management: Type I <7.5% Type II <7.0% Release to patient->Automatic [facility] Immunoglobulin Aon 3 Immunoglobulin A 119 mg/dL 59 - 337 mg/dL [facility] No Panel Informationon 06-09 Interpretation and review of laboratory results Abnormal [facility] Release to patient->Automatic [facility] Progress Noteon 06-09-2023 [employer] Authentication Interface Message Text Patient ID: Mare Mandujano is a 18 y.o. female. Her chief complaint(s) include: Abdominal Pain (X a year, getting worse since December, no pain at this moment) Assessment 1. Abdominal pain, unspecified abdominal location 2. Fatigue, unspecified type Plan Mare was seen today for abdominal pain. Diagnoses and associated orders for this visit: Abdominal pain, unspecified abdominal location - Immunoglobulin A; Future - Transglutaminase IgA; Future - Complete Blood Count with Differential; Future - C-reactive protein (Lab Collect); Future - Hemoglobin A1c (Lab Collect); Future - TSH with Reflex to T4, Free (Lab Collect); Future - Vitamin D 25 hydroxy (Lab Collect); Future - Comprehensive metabolic panel (Lab Collect); Future - POCT urine HCG - POCT urinalysis dipstick - C.trachomatis/GC PCR Panel - X-Ray Abdomen 1 View; Future - AMB Referral To Obstetrics/Gynecology ; Future Fatigue, unspecified type - Immunoglobulin A; Future - Transglutaminase IgA; Future - Complete Blood Count with Differential; Future - C-reactive protein (Lab Collect); Future - Hemoglobin A1c (Lab Collect); Future - TSH with Reflex to T4, Free (Lab Collect); Future - Vitamin D 25 hydroxy (Lab Collect); Future - Comprehensive metabolic panel (Lab Collect); Future - POCT urine HCG Return if symptoms worsen or fail to improve. Discussed fatigue and abdominal pain at length. No weight loss. Obtained labs and abdominal x-ray for further evaluation. X-ray unremarkable. Labs overall unremarkable as well- celiac negative, thyroid normal, CBC and CRP normal, HbA1c normal, CMP normal. Vitamin D level was slightly low, which could be contributing to fatigue. Will start vitamin D supplement. Urine hcg negative and GC/chlamydia negative. UA with no signs of infection. Recommended keeping abdominal pain diary to look for triggers. Can use miralax as needed to help with the difficulty stooling. May also get abdominal US due to duration of pain/symptoms. 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 Discussed importance of using contraception to prevent with having sex. Can discuss contraception with gynecology or can schedule a follow up appointment here to further discuss contraception. Counseled to use condoms with every sexual encounter to prevent and STIs. Subjective HPI Comments: Getting pains across lower abdomen, typically on right side, occasionally on left side. Has pain every day. Will wait it out. Unsure if anything makes it better. Tries not to take meds for it (ibuprofen, etc). Applying pressure to her stomach sometimes helps it feel better. First started about 1.5 years ago. Trouble stooling- sometimes soft, sometimes hard, sometimes feels like she can't go or it gets stuck. Sometimes liquid stools. Often feels like she can't get it all out. Typically stools every day. Feeling bloated and heavy. Gets pain in epigastric area sometimes. Not having reflux symptoms/acid in throat/burning feeling in chest. A few months ago, was 6 days late on her period (was very stressed). Last month, was 4 days late. Having sex with no protection. Used to do depo- stopped due to heavy breakthrough bleeding prior to next dose. Occasional pain with sex. Lower abdominal pain. Last sex was 2 days ago. No concern for STIs- was tested in the past year. Due for her period in a few days. Rides a scooter to work- 20 mph, when the sidewalks are bumpy, gets some right sided pain- stops her for a minute due to the pain. 8/10 pain. Doesn't happen every time, just sometimes with the bumping. Feeling a little nauseous a lot in the mornings and some other random times. For about the past year. No vomiting. Never has a lot of energy for the past year. Sometimes feels like her face gets overheated. Will feel shaky with anxiety sometimes. Or will get shaky if feels cold air in the room. Feels like her muscles tense up and get painful. Hands and feet get cold easily. Frequent urination and some urinary urgency. No pain with urination. Sometimes will hold urine too long, especially at work. Went to yesterday- told she needs to drink more water. Prescribed miralax- hasn't picked it up yet. Drinking 2 bottles water per day. Eating twice a day- typically eats egg and cheese biscuit in the mornings, OJ. Tries not to eat too many burgers. Will eat chicken sandwiches, occ salads at [employer]. Eats some at work, some at home. At home will eat fruits, chicken, some veggies, sometimes roast, potatoes. Hasn't lived on her own very long. Drinks juice 1-2 cups/day. Doesn't like tap water. Doesn't drink soda. Does vitamin water. Sometimes has abdominal/side discomfort when trying to sleep. Working morning shift at [employer]. Mom with IBS and vitamin B12 deficiency (not vegetarian). She is unaccompanied. Abdominal Pain The onset has been v (more content not included)... Normal [facility] [facility] TSH with Reflex to T4, Free (Lab Collect)on 06-09-2023 TSH with reflex to T4, Free 1.170 [facility] Vitamin D 25 hydroxy (Lab Co llect)on 06-09-2023 25 [place] Vitamin D 26 ng/mL Low 30 - 100 ng/mL [facility] Comment on above: Reference ranges pro vided by [facility] Laboratory are based on Endocrine Society Guidelines: Level: Characterization < 21 ng/mL: Vitamin D deficiency 21-29 ng/mL: Suboptimal Vitamin D status 30-100 ng/mL: Optimal Vitamin D status >100 ng/mL: Potentially toxic Vitamin D effects Abdomen/Pelvis W IV Cont ONL Yon 12-29-2022 Abdomen/Pelvis W IV Cont ONLY [facility] Imaging Services [address] [place] [address] Abdomen/Pelvis W IV Cont ONLY MR#: [id number] Acct: [id number] Name: MARE MANDUJANO Rep #: [id number] : 2005 F 17 From: Henri Osorio PCP: Dr. Ani Link MD Status: REG ER Study: Abdomen/Pelvis W IV Cont ONLY Date of Exam: Exam# [id number] Ordering Dr: Camilo Manuel MD EXAM: CT ABDOMEN AND PELVIS WITH INTRAVENOUS CONTRAST CLINICAL INDICATION: pain, RLQ TECHNIQUE: Helically acquired images were obtained of the abdomen and pelvis with intravenous contrast. This CT exam was performed using one or more of the following dose reduction techniques: automated exposure control, adjustment of the mA and/or kV according to patient size, and/or use of iterative reconstruction technique. This report was created using [employer] report generation technology. CONTRAST: IV 100mL Isovue-370 RADIATION DOSE: CTDIvol = 6.05 mGy, DLP = 276.63 mGy-cm COMPARISON: None. FINDINGS: LOWER THORAX: Unremarkable. Lung bases are clear. No cardiomegaly. No significant pericardial effusion. ABDOMEN: LIVER: Unremarkable. Homogeneous. No focal mass. GALLBLADDER AND BILE DUCTS: Unremarkable. No calcified gallstones. No gallbladder distention or wall edema. No intra- or extrahepatic biliary ductal dilation. PANCREAS: Unremarkable. No focal cystic or solid mass. SPLEEN: Unremarkable. Normal size without focal cystic or solid mass. ADRENALS: Unremarkable. No nodules. KIDNEYS AND URETERS: Unremarkable. Normal renal size and position. No hydronephrosis. STOMACH AND BOWEL: Unremarkable. No stomach or bowel distention. No focal inflammatory change. PELVIS: APPENDIX: The appendix is visualized and is normal. BLADDER: Unremarkable. REPRODUCTIVE: Unremarkable as visualized. No mass. ABDOMEN and PELVIS: INTRAPERITONEAL SPACE: There is free fluid in the pelvis. This can be physiologic. No free air. BONES/JOINTS: Unremarkable. No suspicious lytic or blastic abnormality. SOFT TISSUES: Unremarkable. No discrete abdominal or pelvic wall hernia. VASCULATURE: Unremarkable. Abdominal aorta is non-dilated. LYMPH NODES: Unremarkable. No enlarged lymph nodes. CT/Abdomen/Pelvis W IV Cont ONLY IMPRESSION: 1. The appendix is visualized and is normal. 2. There is free fluid in the pelvis. This can be physiologic. Electronically Signed: Henri Sahu MD at 19:12 EDT , CC: Dr. Ani Link MD; Dr. Camilo Manuel MD Inspector [employer]: Signed Normal [facility] CBC W/Diff, Automatedon 12-20 0-2022 Absolute Lymph 1.52 X10 3/uL Normal 0.83-4.51 [facility] Comment on above: Performed By: #### L 500.4050, L100.0100, L700.6800 #### [facility] [address] [place], [address] Absolute Neut 5.1 X10 3/uL Normal 2.0-7.7 [facility] Comment on above: Performed By: #### L 500.4050, L100.0100, L700.6800 #### [facility] [address] [place], [address] Basophils/100 WBC (Bld) 0.1 % Normal 0-1 [facility] Comment on above: Performed By: #### L 500.4050, L100.0100, L700.6800 #### [facility] [address] [place], [address] Eosinophils/100 WBC (Bld) 1.3 % Normal 0-5 [facility] Comment on above: Performed By: #### L 500.4050, L100.0100, L700.6800 #### [facility] [address] [place], [address] Erythrocyte distribution width (RBC) [Ratio] 11.9 % Normal 11.6-14.6 [facility] Comment on above: Performed By: #### L 500.4050, L100.0100, L700.6800 #### [facility] [address] [place], [address] Hematocrit (Bld) [Volume fraction] 37.9 % Normal 37-47 [facility] Comment on above: Performed By: #### L 500.4050, L100.0100, L700.6800 #### [facility] [address] [place], [address] Hemoglobin (Bld) [Mass/Vol] 13.1 g/dL Normal 12.0-15.0 [facility] Comment on above: Performed By: #### L 500.4050, L100.0100, L700.6800 #### [facility] [address] [place], [address] IG% 0.300 Normal 0.0-0.9 [facility] Comment on above: Result Comment: IG% - Immature Granulocytes (promyelocytes, myelocytes and metamyelocytes) > 1% indicates that a LEFT SHIFT is Present. Performed By: #### L 500.4050, L100.0100, L700.6800 #### [facility] [address] [place], [address] Lymphocytes/100 WBC (Bld) 21.5 % Normal 19-41 [facility] Comment on above: Performed By: #### L 500.4050, L100.0100, L700.6800 #### [facility] [address] [place], [address] MCH (RBC) [Entitic mass] 31.4 pg Normal 27.0-32.0 [facility] Comment on above: Performed By: #### L 500.4050, L100.0100, L700.6800 #### [facility] [address] [place], [address] MCHC (RBC) [Mass/Vol] 34.6 g/dL Normal 32-36 [facility] Comment on above: Performed By: #### L 500.4050, L100.0100, L700.6800 #### [facility] [address] [place], [address] MCV (RBC) [Entitic vol] 90.9 fL Normal 81-99 [facility] Comment on above: Performed By: #### L 500.4050, L100.0100, L700.6800 #### [facility] [address] [place], [address] Monocytes/100 WBC (Bld) 5.4 % Normal 0-10 [facility] Comment on above: Performed By: #### L 500.4050, L100.0100, L700.6800 #### [facility] [address] [place], [address] Neutrophils/100 WBC (Bld) 71.4 % High 47-70 [facility] Comment on above: Performed By: #### L 500.4050, L100.0100, L700.6800 #### [facility] [address] [place], [address] Nucleated RBC (Bld) [#/Vol] 0 10*3/uL Normal 0-5 [facility] Comment on above: Performed By: #### L 500.4050, L100.0100, L700.6800 #### [facility] [address], [address] Platelet mean volume (Bld) [Entitic vol] 10.4 fL Normal 6.2-12.0 [facility] Comment on above: Performed By: #### L 500.4050, L100.0100, L700.6800 #### [facility] [address] [place], [address] Platelets (Bld) [#/Vol] 189 10*3/uL Normal 150-450 [facility] Comment on above: Performed By: #### L 500.4050, L100.0100, L700.6800 #### [facility] [address] [place], [address] RBC (Bld) [#/Vol] 4.17 10*6/uL Low 4.2-5.4 [facility] Comment on above: Performed By: #### L 500.4050, L100.0100, L700.6800 #### [facility] [address] [place], [address] RDW SD 39.8 fl Normal 35.1-43.9 [facility] Comment on above: Performed By: #### L 500.4050, L100.0100, L700.6800 #### [facility] [address] [place], [address] WBC (Bld) [#/Vol] 7.1 10*3/uL Normal 4.4-11.0 [facility] Comment on above: Performed By: #### L 500.4050, L100.0100, L700.6800 #### [facility] [address] [place], [address] Comprehensive Metabolic Prof ilon 12-29-2022 Albumin [Mass/Vol] 3.7 g/dL Normal 3.2-5.0 [facility] Comment on above: Performed By: #### L 500.4050, L100.0100, L700.6800 ####[facility] [address] [place], [address] Albumin/Globulin [Mass ratio] 1.2 {ratio} Normal 0.9-2.4 [facility] Comment on above: Performed By: #### L 500.4050, L100.0100, L700.6800 ####[facility] [address] [place], [address] ALK P 51 U/L Normal 45-117 [facility] Comment on above: Performed By: #### L 500.4050, L100.0100, L700.6800 ####[facility] [address] [place], [address] ALT [Catalytic activity/Vol] 19 U/L Normal 13-56 [facility] Comment on above: Performed By: #### L 500.4050, L100.0100, L700.6800 ####[facility] [address] [place], [address] AST [Catalytic activity/Vol] 13 U/L Low 15-37 [facility] Comment on above: Performed By: #### L 500.4050, L100.0100, L700.6800 ####[facility] [address] [place], [address] Bilirubin [Mass/Vol] 0.40 mg/dL Normal 0.20-1.00 [facility] Comment on above: Result Comment: For patients on eltrombopag therapy, use of Dimension [place] TBIL is not recommended. Performed By: #### L 500.4050, L100.0100, L700.6800 ####[facility] [address] [place], [address] BUN/CRE 11.3 RATIO Normal 10-20 [facility] Comment on above: Performed By: #### L 500.4050, L100.0100, L700.6800 ####[facility] [address] [place], [address] CA,Total 8.5 mg/dL Normal 8.5-10.1 [facility] Comment on above: Performed By: #### L 500.4050, L100.0100, L700.6800 ####[facility] [address] [place], [address] Chloride [Moles/Vol] 110 mmol/L High 98-107 [facility] Comment on above: Performed By: #### L 500.4050, L100.0100, L700.6800 ####[facility] [address] [place], [address] CO2 [Moles/Vol] 26.0 mmol/L Normal 21.0-32.0 [facility] Comment on above: Performed By: #### L 500.4050, L100.0100, L700.6800 ####[facility] [address] [place], [address] Creatinine [Mass/Vol] 0.70 mg/dL Normal 0.55-1.02 [facility] Comment on above: Result Comment: The validity of the calculated GFR GFRAA in patients over 70 years has not been determined. Clinical correlation is essential. Performed By: #### L 500.4050, L100.0100, L700.6800 ####[facility] [address] [place], [address] ECRCL 115.61 ml/min Normal [facility] Comment on above: Performed By: #### L 500.4050, L100.0100, L700.6800 ####[facility] [address] [place], [address] EST GFR - AA 137 mL/min Normal >60 [facility] Comment on above: Result Comment: Afri can Italian GFR Calc Performed By: #### L 500.4050, L100.0100, L700.6800 ####[facility] [address] [place], [address] GAP 2 Low 5-15 [facility] Comment on above: Performed By: #### L 500.4050, L100.0100, L700.6800 ####[facility] [address] [place], [address] GFR/1.73 sq M.predicted among non-blacks MDRD (S/P/Bld) [Vol rate/Area] 113 mL/min/{1.73_m2} Normal >60 [facility] Comment on above: Result Comment: Non- GFR Calc Performed By: #### L 500.4050, L100.0100, L700.6800 ####[facility] [address] [place], [address] Globulin (S) [Mass/Vol] 3.1 g/dL Normal 2.2-4.2 [facility] Comment on above: Performed By: #### L 500.4050, L100.0100, L700.6800 ####[facility] [address] [place], [address] Glucose [Mass/Vol] 92 mg/dL Normal 74-106 [facility] Comment on above: Performed By: #### L 500.4050, L100.0100, L700.6800 ####[facility] [address] [place], [address] Potassium [Moles/Vol] 3.7 mmol/L Normal 3.5-5.1 [facility] Comment on above: Performed By: #### L 500.4050, L100.0100, L700.6800 ####[facility] [address] [place], [address] Sodium [Moles/Vol] 138 mmol/L Normal 136-145 [facility] Comment on above: Performed By: #### L 500.4050, L100.0100, L700.6800 ####[facility] [address] [place], [address] T PROT 6.8 g/dL Normal 6.4-8.2 [facility] Comment on above: Performed By: #### L 500.4050, L100.0100, L700.6800 ####[facility] [address] [place], [address] Urea nitrogen [Mass/Vol] 8 mg/dL Normal 7-18 [facility] Comment on above: Performed By: #### L 500.4050, L100.0100, L700.6800 ####[facility] [address] [place], [address] Emergency Department Summary on 12-29-2022 Emergency Department Summary [facility] Medical Records Department [address] [place] [address] Emergency Department Summary 12/29/22 MR#: [id number] Acct: [id number] Name: MARE MANDUJANO Rep #: [id number] : 2005 17 From: Camilo Manuel MD PCP: Dr. Ani Link MD Status:REG ER Location: ED HPI HPI - GI History of Present Illness Chief Complaint: Abd Pain Informant: patient Narrative Narrative: Patient presents with abdominal pain nausea vomiting and some mild diarrhea. She states this started a little less than 24 hours ago. She states it was just a little bit sore down at the right lower quadrant to the right middle abdomen area. She went to sleep overnight. It was still there in the morning and was a little bit worse. She was not really nauseated but after she ate it caused her to vomit. Her appetite is a little bit down but not completely gone. She has vomited another time. She thinks she has had a fever as she has felt hot and cold. She was at [facility] urgent care and they evidently recorded a fever there but she does not recall what that was. Patient has no history of abdominal surgery. Only surgeries tonsils and adenoids. She denies urinary symptoms. She denies vaginal discharge or bleeding. She is not on any meds including no control. [facility] Medical History ADHD Home Medications ondansetron 4 mg disintegrating tablet 4 mg PO Q8H PRN PRN Nausea #10 tabs 12/29/22 [Rx Last Taken Unknown] Allergy/AdvReac Type Severity Reaction Status Date / Time No Known Allergies Allergy Verified 12/29/22 16:39 Surgical History History of tonsillectomy and adenoidectomy Social History Smoking Status: Current some day smoker tobacco type: e-cigarettes substance use type: does not use ROS ROS ED Constitutional Constitutional ED: Reports subjective ENT ENT ED: Denies sore throat Cardiovascular Cardiovascular: Denies chest pain Respiratory/Chest Respiratory/Chest: Denies cough or dyspnea Gastrointestinal Gastrointestinal: Reports abdominal pain, diarrhea, nausea and vomiting; Denies constipation or melena Genitourinary Genitourinary ED: Denies dysuria, hematuria or urinary frequency Musculoskeletal Musculoskeletal: Denies back pain or myalgias Integumentary Denies rash Neurologic Neurologic: Denies headache(s) Endocrine Endocrinology: Denies polydipsia or polyuria Allergic/Immunologic Allergic/Immunologic ED: Denies urticaria EXAM Physical Exam Narrative Exam Narrative: Patient is doing on bed. She is holding empty emesis bag. No acute distress. HEENT shows mildly dry mucous membranes Neck is supple. Lungs are clear. She takes good normal deep breaths without pain. Saturations normal at 100% on room air. Heart is regular. Rate of about 100. I hear no murmur gallop or rub. Abdomen is soft. Bowel sounds seem normal. She does have some mild tenderness toward the right lower quadrant region. There is no rebound guarding or mass though. No CVA tenderness Extremities show no rash or swelling Neurologically she is awake alert and appropriate. Const Vital Signs: 12/29/22 16:37 Temperature 98.5 F Temperature Source Temporal Pulse Rate 114 H Respiratory Rate 16 Blood Pressure 140/85 H Blood Pressure Mean 103 Pulse Ox 100 Oxygen Delivery Method Room Air MDM MDM MDM Narrative Medical decision making narrative: Patient CBC showed no acute process including normal white count Patient's electrolytes were good without signs of dehydration. Liver function tests were normal. New line was negative Urinalysis was clean My independent interpretation of the CT showed no acute process. No inflammatory changes noted toward the right lower quadrant. Oh final reading by radiology was no acute process but there was a small amount of free fluid in the pelvis. Patient's recheck. She states she gets some pain in her chest when she vomits. But she is not vomiting blood. She is feeling better. We will get her home on meds for nausea. She now states that she thinks she likely has irritable bowel because she gets things like this on occasion but this was worse than normal. She may very well have a viral syndrome also. Lab Data Labs: Laboratory Results - last 24 hr 12/29/22 12/29/22 12/29/22 17:09 17:42 17:42 WBC 7.1 RBC 4.17 L Hgb 13.1 Hct 37.9 MCV 90.9 MCH 31.4 MCHC 34.6 RDW Std Deviation 39.8 RDW Coeff of Angela 11.9 Plt Count 189 MPV 10.4 Immature Gran % (Auto) 0.300 Neut % (Auto) 71.4 H Lymph % (Auto) 21.5 [place] % (Auto) 5.4 Eos % (Auto) 1.3 Baso % (Auto) 0.1 (more content not included)... Normal [facility] ,Serum,hCG Quali.on 12-29-2022 HCG, SERUM QUAL Negative Normal [facility] Comment on above: Performed By: #### L 500.4050, L100.0100, L700.6800 ####[facility] [address] [place], [place], [id number] Urinalysis, Completeon 12-29 BACTERIA 1+ /hpf Normal None Seen [facility] Comment on above: Order Comment: JARAD CTOR TO SPECIFY Performed By: #### L 400.0001 #### [facility] [address] [place], [address] EPI,SQUAMOUS 0-5 SEEN Normal -10 [facility] Comment on above: Order Comment: COLLE CTOR TO SPECIFY Performed By: #### L 400.0001 #### [facility] [address] [place], [address] WBC 0-5 SEEN Normal 0-5 [facility] Comment on above: Order Comment: COLLE CTOR TO SPECIFY Performed By: #### L 400.0001 #### [facility] [address] [place], [address] Mucus Ql (Urine sed) 0 SEEN Normal [facility] Comment on above: Order Comment: COLLE CTOR TO SPECIFY Performed By: #### L 400.0001 #### [facility] [address], [address] RBC 0 SEEN Normal 0-5 [facility] Comment on above: Order Comment: COLLE CTOR TO SPECIFY Performed By: #### L 400.0001 #### [facility] [address] [place], [address] Absolute lymphocyte counton 07-30-2022 Lymphocytes Auto (Unsp spec) [#/Vol] 1.31 10*3/uL 0.83-4.51 [facility] Work Phone: Basic Metabolic Profile (BMP )on 07-30-2022 BUN/CRE 9.1 RATIO Low 10-20 [facility] Comment on above: Performed By: #### L 700.6800, L100.0100, L500.2500 #### [facility] [address] [place], [address] CA,Total 8.7 mg/dL Normal 8.5-10.1 [facility] Comment on above: Performed By: #### L 700.6800, L100.0100, L500.2500 #### [facility] [address] [place], [address] Chloride [Moles/Vol] 107 mmol/L Normal 98-107 [facility] Comment on above: Performed By: #### L 700.6800, L100.0100, L500.2500 #### [facility] [address] [place], [address] CO2 [Moles/Vol] 28.0 mmol/L Normal 21.0-32.0 [facility] Comment on above: Performed By: #### L 700.6800, L100.0100, L500.2500 #### [facility] [address] [place], [address] Creatinine [Mass/Vol] 0.77 mg/dL Normal 0.55-1.02 [facility] Comment on above: Result Comment: The validity of the calculated GFR GFRAA in patients over 70 years has not been determined. Clinical correlation is essential. Performed By: #### L 700.6800, L100.0100, L500.2500 #### [facility] [address] [place], [address] ECRCL 105.19 ml/min Normal [facility] Comment on above: Performed By: #### L 700.6800, L100.0100, L500.2500 #### [facility] [address] [place], [address] EST GFR - AA 124 mL/min Normal >60 [facility] Comment on above: Result Comment: Afri can Italian GFR Calc Performed By: #### L 700.6800, L100.0100, L500.2500 #### [facility] [address] [place], [address] GAP 6 Normal 5-15 [facility] Comment on above: Performed By: #### L 700.6800, L100.0100, L500.2500 #### [facility] [address] [place], [address] GFR/1.73 sq M.predicted among non-blacks MDRD (S/P/Bld) [Vol rate/Area] 103 mL/min/{1.73_m2} Normal >60 [facility] Comment on above: Result Comment: Non- GFR Calc Performed By: #### L 700.6800, L100.0100, L500.2500 #### [facility] [address] [place], [address] Glucose [Mass/Vol] 104 mg/dL Normal 74-106 [facility] Comment on above: Result Comment: Fast ing Glucose result from 100 to 125 mg/dL suggests IMPAIRED HOMEOSTASIS per A.D.A. criteria. Performed By: #### L 700.6800, L100.0100, L500.2500 #### [facility] [address] [place], [address] Potassium [Moles/Vol] 3.9 mmol/L Normal 3.5-5.1 [facility] Comment on above: Performed By: #### L 700.6800, L100.0100, L500.2500 #### [facility] [address] [place], [address] Sodium [Moles/Vol] 141 mmol/L Normal 136-145 [facility] Comment on above: Performed By: #### L 700.6800, L100.0100, L500.2500 #### [facility] [address] [place], [address] Urea nitrogen [Mass/Vol] 7 mg/dL Normal 7-18 [facility] Comment on above: Performed By: #### L 700.6800, L100.0100, L500.2500 #### [facility] [address] [place], [address] Basophil percentageon 2021 Basophil percentage 0-5 SEEN /hpf 0-5 [facility] Work Phone: Basophils/100 WBC (Bld) 0.2 % 0-1 [facility] Work Phone: Chloride [Moles/Vol] 107 mmol/L 98-107 [facility] Work [facility]: Eosinophils/100 WBC (Bld) 2.0 % 0-5 [facility] Work Phone: Glucose [Mass/Vol] 104 mg/dL 74-106 [facility] Work Phone: Comment on above: Fasting Glucose resu lt from 100 to 125 mg/dL suggests IMPAIRED HOMEOSTASIS per A.D.A. criteria. Neutrophils (Bld) [#/Vol] 4.1 10*3/uL 2.0-7.7 [facility] Work Phone: Neutrophils/100 WBC (Bld) 68.8 % 47-70 [facility] Work Phone: Potassium [Moles/Vol] 3.9 mmol/L 3.5-5.1 [facility] Work Phone: Sodium [Moles/Vol] 141 mmol/L 136-145 [facility] Work Phone: WBC (Bld) [#/Vol] 5.9 10*3/uL 4.4-11.0 [facility] Work Phone: Beta hCG serum qualon 2021 Beta HCG ( test) Ql Negative [facility] Work Phone: Bilirubin Test strip Ql (U)o n 07-30-2022 Bilirubin Ql (U) Negative Negative [facility] Work Phone: Blood erythrocytes count (nu mber/volume)on 07-30-2022 RBC (Bld) [#/Vol] 4.46 10*6/uL 4.2-5.4 [facility] Work Phone: Blood hemoglobin measurement (mass/volume)on 07-30-2022 Hemoglobin (Bld) [Mass/Vol] 13.6 g/dL 12.0-15.0 [facility] Work Phone: Blood lymphocytes/100 leukoc yteson 07-30-2022 Lymphocytes/100 WBC (Bld) 22.1 % 19-41 [facility] Work Phone: [phone] Blood monocytes/100 leukocyt eson 07-30-2022 Monocytes/100 WBC (Bld) 6.6 % 0-10 [facility] Work Phone: [phone] Blood platelet mean volumeon 07-30-2022 Platelet mean volume (Bld) [Entitic vol] 10.4 fL 6.2-12.0 [facility] Work Phone: [phone] CBC W/Diff, Automatedon 0 Absolute Lymph 1.31 X10 3/uL Normal 0.83-4.51 [facility] Comment on above: Performed By: #### L 700.6800, L100.0100, L500.2500 #### [facility] [address] [place], [address] Absolute Neut 4.1 X10 3/uL Normal 2.0-7.7 [facility] Comment on above: Performed By: #### L 700.6800, L100.0100, L500.2500 #### [facility] [address] [place], [address] Basophils/100 WBC (Bld) 0.2 % Normal 0-1 [facility] Comment on above: Performed By: #### L 700.6800, L100.0100, L500.2500 #### [facility] [address] [place], [address] Eosinophils/100 WBC (Bld) 2.0 % Normal 0-5 [facility] Comment on above: Performed By: #### L 700.6800, L100.0100, L500.2500 #### [facility] [address] [place], [address] Erythrocyte distribution width (RBC) [Ratio] 12.3 % Normal 11.6-14.6 [facility] Comment on above: Performed By: #### L 700.6800, L100.0100, L500.2500 #### [facility] [address] [place], [address] Hematocrit (Bld) [Volume fraction] 40.3 % Normal 37-47 [facility] Comment on above: Performed By: #### L 700.6800, L100.0100, L500.2500 #### [facility] [address] [place], [address] Hemoglobin (Bld) [Mass/Vol] 13.6 g/dL Normal 12.0-15.0 [facility] Comment on above: Performed By: #### L 700.6800, L100.0100, L500.2500 #### [facility] [address] [place], [address] IG% 0.300 Normal 0.0-0.9 [facility] Comment on above: Result Comment: IG% - Immature Granulocytes (promyelocytes, myelocytes and metamyelocytes) > 1% indicates that a LEFT SHIFT is Present. Performed By: #### L 700.6800, L100.0100, L500.2500 #### [facility] [address] [place], [address] Lymphocytes/100 WBC (Bld) 22.1 % Normal 19-41 [facility] Comment on above: Performed By: #### L 700.6800, L100.0100, L500.2500 #### [facility] [address] [place], [address] MCH (RBC) [Entitic mass] 30.5 pg Normal 27.0-32.0 [facility] Comment on above: Performed By: #### L 700.6800, L100.0100, L500.2500 #### [facility] [address] [place], [address] MCHC (RBC) [Mass/Vol] 33.7 g/dL Normal 32-36 [facility] Comment on above: Performed By: #### L 700.6800, L100.0100, L500.2500 #### [facility] [address] [place], [address] MCV (RBC) [Entitic vol] 90.4 fL Normal 81-99 [facility] Comment on above: Performed By: #### L 700.6800, L100.0100, L500.2500 #### [facility] [address] [place], [address] Monocytes/100 WBC (Bld) 6.6 % Normal 0-10 [facility] Comment on above: Performed By: #### L 700.6800, L100.0100, L500.2500 #### [facility] [address] [place], [address] Neutrophils/100 WBC (Bld) 68.8 % Normal 47-70 [facility] Comment on above: Performed By: #### L 700.6800, L100.0100, L500.2500 #### [facility] [address] [place], [address] Nucleated RBC (Bld) [#/Vol] 0 10*3/uL Normal 0-5 [facility] Comment on above: Performed By: #### L 700.6800, L100.0100, L500.2500 #### [facility] [address] [place], [address] Platelet mean volume (Bld) [Entitic vol] 10.4 fL Normal 6.2-12.0 [facility] Comment on above: Performed By: #### L 700.6800, L100.0100, L500.2500 #### [facility] [address] [place], [address] Platelets (Bld) [#/Vol] 173 10*3/uL Normal 150-450 [facility] Comment on above: Performed By: #### L 700.6800, L100.0100, L500.2500 #### [facility] [address] [place], [address] RBC (Bld) [#/Vol] 4.46 10*6/uL Normal 4.2-5.4 [facility] Comment on above: Performed By: #### L 700.6800, L100.0100, L500.2500 #### [facility] [address] [place], [address] RDW SD 40.5 fl Normal 35.1-43.9 [facility] Comment on above: Performed By: #### L 700.6800, L100.0100, L500.2500 #### [facility] [address] [place], [address] WBC (Bld) [#/Vol] 5.9 10*3/uL Normal 4.4-11.0 [facility] Comment on above: Performed By: #### L 700.6800, L100.0100, L500.2500 #### [facility] [address] [place], [address] Determination of erythrocyte mean corpuscular volume (MCV)on 07-30-2022 MCV (RBC) [Entitic vol] 90.4 fL 81-99 [facility] Work Phone: Emergency Department Summary on 07-30-2022 Emergency Department Summary [facility] Medical Records Department [address] [place] [address] Emergency Department Summary 07/30/22 MR#: [id number] Acct: [id number] Name: MARE MANDUJANO Rep #: [id number] : 2005 17 From: Derrick Huitron DO PCP: Dr. Ani Link MD Status:DEP ER Location: ED HPI HPI - GI History of Present Illness Chief Complaint: Abd Pain Detail of Chief Complaint: Abdominal pain that started this morning around 5 AM Informant: patient Narrative Narrative: Patient presents with lower abdominal pain that started this morning around 5 AM. Patient also states that her menstrual period started yesterday and has been heavier than usual and more painful. Patient's had nausea but no vomiting. She had a bowel movement this morning that was normal. She denies blood in her stool or black tarry stool. She denies dysuria, urgency, or frequency. Patient's last menstrual period was less than a month ago. She does not think she is . She is not on control. She is never been . [facility] Medical History ADHD Allergy/AdvReac Type Severity Reaction Status Date / Time No Known Allergies Allergy Verified 07/30/22 08:06 Surgical History History of tonsillectomy and adenoidectomy Social History (Updated 04/14/22 @ 23:[address] Jason Peck DO) Smoking Status: Current some day smoker tobacco type: e-cigarettes substance use type: does not use ROS ROS ED Review of Systems ROS Unobtainable: other Constitutional Constitutional ED: Reports lethargy; Denies chills, fever(s), sweats or weight loss Eyes Eyes: Denies blurry vision, change in vision or diplopia ENT ENT ED: Denies rhinorrhea or sore throat Cardiovascular Cardiovascular: Denies chest pain, orthopnea or racing heartbeat Respiratory/Chest Respiratory/Chest: Denies cough, dyspnea, dyspnea on exertion, orthopnea or sputum Gastrointestinal Gastrointestinal: Reports abdominal pain and nausea; Denies diarrhea or vomiting Genitourinary Genitourinary ED: Denies dysuria, hematuria or urinary frequency Musculoskeletal Musculoskeletal: Denies arthralgias, back pain, myalgias or neck pain Integumentary Denies abscess, Abrasions or rash Neurologic Neurologic: Denies headache(s) or weakness Psychiatric Psychiatric: Denies anxiety, depression or suicidal thoughts Endocrine Endocrinology: Denies polydipsia, polyphagia or polyuria Hematologic/Lymphatic Hematologic/Lymphatic : Denies easy bleeding, easy bruising or lymphadenopathy Allergic/Immunologic Allergic/Immunologic ED: Denies mouth swelling, tongue swelling or urticaria EXAM Physical Exam Const Vital Signs: 07/30/22 08:04 Temperature 97.9 F Temperature Source Temporal Pulse Rate 90 Respiratory Rate 16 Blood Pressure 120/80 Blood Pressure Mean 93 Pulse Ox 100 Oxygen Delivery Method Room Air Positive well nourished and well developed General Appearance ED: well developed and NAD HEENT Reports TM's clear and moist mucous membranes normocephalic and atraumatic; Negative for trauma or tenderness Tympanic Membrane ED: Yes TM's clear Eyes PERRL and EOMs intact bilaterally General Eye ED: Negative for pale conjunctiva or scleral icterus Neck no lymphadenopathy, supple and no JVD General: Negative for tenderness Chest Wall inspection of chest normal and palpation of chest normal Chest: Negative for tenderness Resp normal respiratory effort and clear to auscultation bilaterally Effort and Inspection: Negative for respiratory distress or pain with movement Auscultation: Negative for rhonchi, wheezes or diminished lung sounds Cardio regular rate, regular rhythm, S1 normal heart sound, S2 normal heart sound and no murmurs Peripheral Pulses: pulses 2+ throughout GI normal to inspection, nondistended, normoactive bowel sounds, soft to palpation, non-distended and no masses GI Narrative: Tenderness palpation over the suprapubic region as well as the right lower quadrant. There are some mild guarding. There is no rebound, rigidity, or peritoneal signs. Back/Spine no CVA tenderness and no thoracic nor lumbar tenderness Extremity normal to inspection General Extremety ED: Negative for edema General Extremity: Negative for edema Neuro oriented x3, CN's II-XII intact bilaterally, no sensory deficits noted and gait normal Sensorium / Orientation: awake, alert, oriented to person, oriented to place and oriented to time Motor Exam: strength 5/5 throughout and strength abnormal Psych mental status grossly normal Skin no rashes or lesions noted and no wounds MDM MDM MDM Narrative Medical decision making narrative: IV line established on arrival. Patient received Toradol 30 (more content not included)... Normal [facility] Hematocrit Auto (Bld) [Volum e fraction]on 07-30-2022 Hematocrit (Bld) [Volume fraction] 40.3 % 37-47 [facility] Work Phone: Ketones Test strip Ql (U)on 07-30-2022 Ketones Ql (U) 5 mg/dl Negative [facility] Work Phone: Laboratory - Chemistry and C hemistry - challengeon 07-30-2022 CO2 [Moles/Vol] 28.0 mmol/L 21.0-32.0 [facility] Work Phone: Urea nitrogen/Creatinine [Mass ratio] 9.1 mg/mg 10-20 [facility] Work Phone: Laboratory - Hematology and Cell countson 07-30-2022 Erythrocyte distribution width (RBC) [Entitic vol] 40.5 fL 35.1-43.9 [facility] Work Phone: Erythrocyte distribution width (RBC) [Ratio] 12.3 % 11.6-14.6 [facility] Work Phone: Immature granulocytes/100 WBC (Bld) 0.300 % 0.0-0.9 [facility] Work Phone: Comment on above: IG% - Immature Granu locytes (promyelocytes, myelocytes and metamyelocytes) > 1% indicates that a LEFT SHIFT is Present. MCH (RBC) [Entitic mass] 30.5 pg 27.0-32.0 [facility] Work Phone: Nucleated RBC/100 WBC (Bld) [Ratio] 0 % 0-5 [facility] Work Phone: MCHC Auto (RBC) [Mass/Vol]on 07-30-2022 MCHC (RBC) [Mass/Vol] 33.7 g/dL 32-36 [facility] Work Phone: Mucus LM Ql (Urine sed)on Mucus Ql (Urine sed) 0 SEEN /hpf [facility] Work Phone: Nitrite Test strip Ql (U)on 07-30-2022 Nitrite Ql (U) Negative Negative [facility] Work Phone: No Panel Informationon 07-30 Estimated Creatinine Clearance Calc 105.19 ml/min [facility] Work Phone: Estimated GFR (MDRD) Amer 124 mL/min >60 [facility] Work Phone: Comment on above: GFR Calc Estimated GFR (MDRD) Non-Af Amer 103 mL/min >60 [facility] Work Phone: Comment on above: Non- GFR Calc Platelets bldon 07-30-2022 Platelets (Bld) [#/Vol] 173 10*3/uL 150-450 [facility] Work Phone: ,Serum,hCG Quali.on 07-30-2022 HCG, SERUM QUAL Negative Normal [facility] Comment on above: Performed By: #### L 700.6800, L100.0100, L500.2500 #### [facility] [address] [place], [place], [id number] Protein Test strip Ql (U)on 07-30-2022 Protein Ql (U) 30 mg/dl Negative [facility] Work Phone: Serum or plasma calcium nicole urement (mass/volume)on 07-30-2022 Calcium [Mass/Vol] 8.7 mg/dL 8.5-10.1 [facility] Work Phone: Serum or plasma creatinine m easurement (mass/volume)on 07-30-2022 Creatinine [Mass/Vol] 0.77 mg/dL 0.55-1.02 [facility] Work Phone: Comment on above: The validity of the calculated GFR & GFRAA in patients over 70 years has not been determined. Clinical correlation is essential. Serum or plasma urea nitroge n measurement (mass/volume)on 07-30-2022 Urea nitrogen [Mass/Vol] 7 mg/dL 7-18 [facility] Work Phone: Squamous epithelial cells de tection in urine sediment by light microscopyon 07-30-2022 Epithelial cells.squamous LM Ql (Urine sed) 0 SEEN /hpf 5-10 [facility] Work Phone: Thin prep Papanicolaou smear with manual screeningon 07-30-2022 Thin prep Papanicolaou smear with manual screening 6 5-15 [facility] Work Phone: Urinalysis, Completeon 07-30 RBC > 100 SEEN Normal 0-5 [facility] Comment on above: Order Comment: CLEAN CATCH Performed By: #### L 400.0001 #### [facility] [address] [place], [address] WBC 0-5 SEEN Normal 0-5 [facility] Comment on above: Order Comment: CLEAN CATCH Performed By: #### L 400.0001 #### [facility] [address] [place], [address] BACTERIA 0 SEEN Normal None Seen [facility] Comment on above: Order Comment: CLEAN CATCH Performed By: #### L 400.0001 #### [facility] [address] [place], [address] EPI,SQUAMOUS 0 SEEN Normal 5-10 [facility] Comment on above: Order Comment: CLEAN CATCH Performed By: #### L 400.0001 #### [facility] [address] [place], [address] Mucus Ql (Urine sed) 0 SEEN Normal [facility] Comment on above: Order Comment: CLEAN CATCH Performed By: #### L 400.0001 #### [facility] [address] [place], [address] Urine blood detectionon RBC Ql (U) 250 /ul Negative [facility] Work Phone: RBC Ql (U) > 100 SEEN /hpf 0-5 [facility] Work Phone: Urine clarityon 07-30-2022 Clarity (U) Sl. Cloudy Clear [facility] Work Phone: Urine color determinationon 07-30-2022 Color (U) Yellow Yellow [facility] Work Phone: Urine glucose detectionon Glucose Ql (U) Normal mg/dl Normal [facility] Work Phone: Urine leukocyte esterase det ection by dipstickon 07-30-2022 Leukocyte esterase Test strip Ql (U) 100 /ul Negative [facility] Work Phone: Urine pHon 07-30-2022 pH (U) 5.0 [pH] 5.0 - 8.0 [facility] Work Phone: Urine sediment bacteria coun t by microscopy (number/high power field)on 07-30-2022 Bacteria LM.HPF (Urine sed) [#/Area] 0 /[HPF] None Seen [facility] Work Phone: Urine specific gravity measu rementon 07-30-2022 Specific gravity (U) [Rel density] 1.025 1.002-1.030 [facility] Work Phone: Urobilinogen Auto test strip Ql (U)on 07-30-2022 Urobilinogen Ql (U) 1 mg/dl Normal [facility] Work Phone: HCG QUAL UR B/Oon 06-26-2022 status Negative neg - pos [facility] Quality Check Yes [facility] Emergency Department Summary on 04-15-2022 Emergency Department Summary [facility] Medical Records Department [address] [place] [address] Emergency Department Summary 04/14/22 MR#: [id number] Acct: [id number] Name: MARE MANDUJANO Rep #: [id number] : 2005 16 From: Jason Peck DO PCP: Dr. Ani Link MD Status:PRE ER Location: ED HPI History of Present Illness Chief Complaint: Laceration Informant: patient Narrative Narrative: 16-year-old female was at work tonight when a broken piece of porcelain cut the palm of her right hand. She states she cannot get it to stop bleeding and wonders if there is a piece of material in it. Tetanus Immunization: <[address] [facility] Medical History ADHD Allergy/AdvReac Type Severity Reaction Status Date / Time No Known Allergies Allergy Verified 04/07/21 16:04 Surgical History History of tonsillectomy and adenoidectomy Social History (Updated 04/14/22 @ 23:[address] Jason Peck DO) Smoking Status: Never smoker substance use type: does not use ROS ROS ED Constitutional Constitutional ED: Denies chills or weight loss Eyes Eyes: Denies change in vision or diplopia ENT ENT ED: Denies ear pain, rhinorrhea or sore throat Cardiovascular Cardiovascular: Denies chest pain, orthopnea, palpitations or racing heartbeat Respiratory/Chest Respiratory/Chest: Denies cough, dyspnea or orthopnea Gastrointestinal Gastrointestinal: Denies abdominal pain, diarrhea, nausea or vomiting Genitourinary Genitourinary ED: Denies dysuria, hematuria or urinary frequency Musculoskeletal Musculoskeletal: Denies arthralgias or myalgias Integumentary Denies abscess or rash Neurologic Neurologic: Denies headache(s) or weakness Psychiatric Psychiatric: Denies anxiety, depression, suicidal ideation or suicidal thoughts Endocrine Endocrinology: Denies polydipsia, polyphagia or polyuria Allergic/Immunologic Allergic/Immunologic ED: Denies mouth swelling, tongue swelling or urticaria EXAM Physical Exam Const Vital Signs: 04/14/22 23:04 Temperature 96.9 F L Temperature Source Temporal Pulse Rate 93 Respiratory Rate 15 Blood Pressure 122/78 Blood Pressure Mean 92 Pulse Ox 100 Oxygen Delivery Method Room Air Positive well nourished and well developed General Appearance ED: well developed HEENT Reports normocephalic, head/scalp atraumatic and moist mucous membranes Eyes PERRL and EOMs intact bilaterally Neck no lymphadenopathy, supple and no JVD Resp normal respiratory effort and clear to auscultation bilaterally Cardio regular rate, regular rhythm and no murmurs GI normal to inspection, nondistended, normoactive bowel sounds and non-tender Palpation: soft Back/Spine no CVA tenderness and normal ROM Extremity full ROM General Extremety ED: Negative for edema General Extremity: Negative for edema Neuro oriented x3 and CN's II-XII intact bilaterally Sensorium / Orientation: alert Motor Exam: strength 5/5 throughout Psych mental status grossly normal Mood Affect: Negative for depressed or tearful Skin no rashes or lesions noted Skin Narrative: There is about a 3 mm superficial laceration of the thenar eminence. There is active venous bleeding. MDM MDM MDM Narrative Medical decision making narrative: Wound was locally anesthetized using 1% lidocaine with epinephrine. It was explored I do not feel a foreign body or visualized 1. Between the epinephrine and direct pressure bleeding was stopped and then Dermabond was applied over the wound. Wound care discussed with patient return if worsening or concerns Discharge Plan Triage Chief Complaint: Laceration ED Provider: Jason Peck Dx/Rx/DC Orders Clinical Impression: Hand laceration Instructions: ED Laceration: Skin Adhesive Primary Care Provider: Ani Link Referrals: Ani Link MD [Primary Care Provider] - As Needed Disposition Disposition: Home, Self Care What to do if you have Problems For any increased pain, shortness of breath, bleeding, nausea or vomiting, chest pain, or any unexpected problems, contact your Primary Care Provider. Call [facility] ([phone]) or report to the closest Emergency Room. Call 911 if necessary. 04/14/22 0132 Cosigner Signature (if applicable): CC: Dr. Ani Link MD Signed [facility] [id number] 12-23-2021 Date of Onset 20211222 Invalid Interpretation Code [facility] ([place]) Comment on above: Performed By: #### C OVD19, FLURSV, STREPA #### [place] [id number] Employed in Healthcare No [facility] ([place]) Comment on above: Performed By: #### C OVD19, FLURSV, STREPA #### [place] [address] First Test No Counts Include [address] [facility] ([place]) Comment on above: Performed By: #### C OVD19, FLURSV, STREPA #### [place] [address] Hospitalized No Counts Include [address] [facility] ([place] Comment on above: Performed By: #### C OVD19, FLURSV, STREPA #### [place] [address] ICU No Counts Include [address] [facility] ([place] Comment on above: Performed By: #### C OVD19, FLURSV, STREPA #### [address] [address] Not Normal [facility] ([place] Comment on above: Performed By: #### C OVD19, FLURSV, STREPA #### [address] [address] Resides in Congregate Care Setting No Normal [facility] ([place] Comment on above: Performed By: #### C OVD19, FLURSV, STREPA #### [address] [address] SARS-CoV-2 (COVID-19) RNA ISABELLA+probe Ql (Unsp spec) Positive Abnormal Negative [facility] ([place]) Comment on above: Performed By: #### C OVD19, FLURSV, STREPA #### [place] [address] SARS-CoV-2 (COVID-19) RNA ISABELLA+probe Ql (Unsp spec) Normal [facility] ([place]) Comment on above: Result Comment: Posi tive results are indicative of the presence of SARS-CoV-2 RNA; clinical correlation with patient history and other diagnostic information is necessary to determine patient infection status. Positive results do not rule out bacterial infection or co-infection with other viruses. The agent detected may not be the definite cause of disease. Laboratories within the [facility] and its territories are required to report all positive results to the appropriate public health authorities. Detection of analyte target(s) does not imply that the corresponding virus(es) are infectious or are the causative agents for clinical symptoms. There is a risk of false positive values resulting from cross-contamination by target organisms, their nucleic acids or amplified product, or from non-specific signals in the assay. REX SARS-CoV-2 Assay is a Real-Time reverse-transcriptase polymerase chain reaction (RT-PCR) based qualitative in vitro diagnostic test intended for the qualitative detection of nucleic acid from the SARS-CoV-2 in nasopharyngeal swab specimens collected from individuals suspected of COVID-19 by their healthcare provider. Testing is limited to laboratories certified under the Clinical Laboratory Improvement Amendments of 1988 (CLIA), 42 U.S.C. ?263a, to perform moderate and high complexity tests. COVID-19 Int Performed By: #### C OVD19, FLURSV, STREPA #### [address] [address] Symptomatic as Defined by CDC No Normal [facility] ([place]) Comment on above: Performed By: #### C OVD19, FLURSV, STREPA #### [address] [address] FLURSVon 12-23-2021 Flu A PCR (AO) Negative Normal Negative [facility] ([place]) Comment on above: Result Comment: Posi tive Results: Positive Flu A/B or RSV for by PCR. Positive test results do not rule out bacterial infection or co-infection with other pathogens. Test results should be interpreted in conjunction with other laboratory and clinical data. Negative Results: Negative for by PCR. Negative test results do not preclude influenza virus or RSV infection and should not be used as the sole basis for diagnosis, treatment, or other management decisions. There is a risk of false negative RSV results when at low concentration and in the presence of co-infection with high concentration of influenza A. Invalid Results: An Invalid result (INV) was obtained. The test was repeated with similar results. REPEAT COLLECTION AND TESTING IS RECOMMENDED. The Pro[employer] Flu A/B & RSV Assay is a real-time polymerase chain reaction (PCR) based qualitative in vitro diagnostic test for the direct detection and differentiation of influenza A virus, influenza B virus, and respiratory syncytial virus (RSV) nucleic acid in nasopharyngeal swab (WELFARE INVESTIGATOR) specimens from patients with signs and symptoms of respiratory infection in conjunction with clinical and laboratory findings. The test is intended for use as an aid in the differential diagnosis of influenza A virus, influenza B virus, and RSV in humans and is not intended to detect influenza C. Performed By: #### C OVD19, FLURSV, STREPA #### [address] [address] Flu B PCR (AO) Negative Normal Negative [facility] ([place]) Comment on above: Result Comment: Posi tive Results: Positive Flu A/B or RSV for by PCR. Positive test results do not rule out bacterial infection or co-infection with other pathogens. Test results should be interpreted in conjunction with other laboratory and clinical data. Negative Results: Negative for by PCR. Negative test results do not preclude influenza virus or RSV infection and should not be used as the sole basis for diagnosis, treatment, or other management decisions. There is a risk of false negative RSV results when at low concentration and in the presence of co-infection with high concentration of influenza A. Invalid Results: An Invalid result (INV) was obtained. The test was repeated with similar results. REPEAT COLLECTION AND TESTING IS RECOMMENDED. The Rex Flu A/B & RSV Assay is a real-time polymerase chain reaction (PCR) based qualitative in vitro diagnostic test for the direct detection and differentiation of influenza A virus, influenza B virus, and respiratory syncytial virus (RSV) nucleic acid in nasopharyngeal swab (WELFARE INVESTIGATOR) specimens from patients with signs and symptoms of respiratory infection in conjunction with clinical and laboratory findings. The test is intended for use as an aid in the differential diagnosis of influenza A virus, influenza B virus, and RSV in humans and is not intended to detect influenza C. Performed By: #### C OVD19, FLURSV, STREPA #### [id number] [place], [place] [address] RSV PCR (AO) Negative Normal Negative [facility] ([place]) Comment on above: Result Comment: Posi tive Results: Positive Flu A/B or RSV for by PCR. Positive test results do not rule out bacterial infection or co-infection with other pathogens. Test results should be interpreted in conjunction with other laboratory and clinical data. Negative Results: Negative for by PCR. Negative test results do not preclude influenza virus or RSV infection and should not be used as the sole basis for diagnosis, treatment, or other management decisions. There is a risk of false negative RSV results when at low concentration and in the presence of co-infection with high concentration of influenza A. Invalid Results: An Invalid result (INV) was obtained. The test was repeated with similar results. REPEAT COLLECTION AND TESTING IS RECOMMENDED. The Rex Flu A/B & RSV Assay is a real-time polymerase chain reaction (PCR) based qualitative in vitro diagnostic test for the direct detection and differentiation of influenza A virus, influenza B virus, and respiratory syncytial virus (RSV) nucleic acid in nasopharyngeal swab (WELFARE INVESTIGATOR) specimens from patients with signs and symptoms of respiratory infection in conjunction with clinical and laboratory findings. The test is intended for use as an aid in the differential diagnosis of influenza A virus, influenza B virus, and RSV in humans and is not intended to detect influenza C. Performed By: #### C OVD19, FLURSV, STREPA #### [address] [place], [place] [address] LABORATORYOrdered By: Jillian Schroeder on 12-23-2021 ADMITTED TO INTENSIVE CARE UNIT FOR CONDITION OF INTEREST:FIND:PT:^BOSTON ENT:ORD: No (12/23/21 3:22 PM) Invalid Interpretation Code AO Auto Urine SS EMPLOYED IN A HEALTHCARE SETTING:FIND:PT:^PATIE NT:ORD: No (12/23/21 3:22 PM) Invalid Interpretation Code AO Auto Urine SS FIRST TEST FOR CONDITION OF INTEREST:FIND:PT:^BOSTON ENT:ORD: No (12/23/21 3:22 PM) Invalid Interpretation Code AO Auto Urine SS FLUAV RNA ISABELLA+probe Ql (Upper resp) Negative (12/23/21 3:22 PM) Invalid Interpretation Code Negative AO Auto Urine SS FLUBV RNA ISABELLA+probe Ql (Upper resp) Negative (12/23/21 3:22 PM) Invalid Interpretation Code Negative AO Auto Urine SS Group A Strep PCR Int Negative for Streptococcus pyogenes by PCR. Negative test results do not rule out other possible infections besides those caused by Group A Streptococcus. False Negatives may be obtained in the presence of NYQUIL (0.5% V/V)The Rex Group A Strep Assay is a real-time polymerase chain reaction (PCR) based qualitative in vitro diagnostic test for the direct detection of Streptococcus pyogenes (Group A Beta hemolytic Streptococcus) in throat swab specimens from patients with signs and symptoms of pharyngitis.The Rex Group A Strep Assay can be used as an aid in the diagnosis of Group A Streptococcal pharyngitis. The assay is not intended to monitor treatment for Group A Streptococcus infections. Invalid Interpretation Code AO Auto Urine SS HAS SYMPTOMS RELATED TO CONDITION OF INTEREST:FIND:PT:^BOSTON ENT:ORD: No (12/23/21 3:22 PM) Invalid Interpretation Code AO Auto Urine SS Illness or injury onset date and time [id number] Invalid Interpretation Code AO Auto Urine SS Patient was hospitalized because of this condition No (12/23/21 3:22 PM) Invalid Interpretation Code AO Auto Urine SS status Not (12/23/21 3:22 PM) Invalid Interpretation Code AO Auto Urine SS RESIDES IN A CONGREGATE CARE SETTING:FIND:PT:^RAVINDRA NT:ORD: No (12/23/21 3:22 PM) Invalid Interpretation Code AO Auto Urine SS RSV RNA ISABELLA+probe Ql (Upper resp) Negative (12/23/21 3:22 PM) Invalid Interpretation Code Negative AO Auto Urine SS S. pyogenes DNA ISABELLA+probe Ql (Throat) Negative (12/23/21 3:22 PM) Invalid Interpretation Code Negative AO Auto Urine SS SARS-CoV-2 (COVID-19) RNA ISABELLA+probe Ql (Resp) Positive *ABN* (12/23/21 3:22 PM) Invalid Interpretation Code Negative AO Auto Urine SS SARS-CoV-2 (COVID-19) RNA ISABELLA+probe Ql (Unsp spec) Positive results are indicative of the presence of SARS-CoV-2 RNA; clinical correlation with patient history and other diagnostic information is necessary to determine patient infection status. Positive results do not rule out bacterial infection or co-infection with other viruses. The agent detected may not be the definite cause of disease. Laboratories within the [facility] and its territories are required to report all positive results to the appropriate public health authorities.Detection of analyte target(s) does not imply that the corresponding virus(es) are infectious or are the causative agents for clinical symptoms.There is a risk of false positive values resulting from cross-contamination by target organisms, their nucleic acids or amplified product, or from non-specific signals in the assay.REX SARS-CoV-2 Assay is a Real-Time reverse-transcriptase polymerase chain reaction (RT-PCR) based qualitative in vitro diagnostic test intended for the qualitative detection of nucleic acid from the SARS-CoV-2 in nasopharyngeal swab specimens collected from individuals suspected of COVID-19 by their healthcare provider. Testing is limited to laboratories certified under the Clinical Laboratory Improvement Amendments of 1988 (CLIA), 42 U.S.C. 263a, to perform moderate and high complexity tests. Invalid Interpretation Code AO Auto Urine SS STREPAon 12-23-2021 Group A Strep PCR Negative Normal Negative [facility] ([place]) Comment on above: Performed By: #### C OVD19, FLURSV, STREPA #### [address] [address] Group A Strep PCR Int Normal [facility] ([place]) Comment on above: Result Comment: Nega tive for Streptococcus pyogenes by PCR. Negative test results do not rule out other possible infections besides those caused by Group A Streptococcus. False Negatives may be obtained in the presence of NYQUIL (0.5% V/V) The Rex Group A Strep Assay is a real-time polymerase chain reaction (PCR) based qualitative in vitro diagnostic test for the direct detection of Streptococcus pyogenes (Group A Beta hemolytic Streptococcus) in throat swab specimens from patients with signs and symptoms of pharyngitis. The Rex Group A Strep Assay can be used as an aid in the diagnosis of Group A Streptococcal pharyngitis. The assay is not intended to monitor treatment for Group A Streptococcus infections. See Interp Performed By: #### C OVD19, FLURSV, STREPA #### [id number] [place], [place] [address] XR CHEST 1 VIEWon 12-23-2021 XR CHEST 1 VIEW ORIGINAL HISTORY: Cough COMPARISON: No FINDINGS: The lungs and pleural spaces are clear. The pulmonary vasculature is unremarkable in appearance. The cardiac silhouette is within normal size limits. IMPRESSION: Clear lungs. Interpreted by: Jaziel Perez MD Preliminary Report By: Jaziel Perez MD Electronically signed By Jaziel Perez MD Dictated Date: 12/23/2021 3:13:08 PM Prelim Date: 12/23/2021 3:13:59 PM Sign Date: 12/23/2021 3:13:59 PM Ordering Provider: [facility] Knee - right 4 Viewson IMPRESSION: * Soft tissue swelling, but no fracture. * Abnormal alignment of both patellas, but no antonietta subluxation. Inspector Bullet Slugs: [email or web address] Transcribe Date/Time: Dec 19 2021 4:31P Dictated by : KATH CHIANG MD This examination was interpreted and the report reviewed and electronically signed by: KATH CHIANG MD on Dec 19 2021 4:37PM [facility] DIVISION OF RADIOLOGY * * *Final Report* * * DATE OF EXAM: Dec 19 2021 4:12PM WOX 5203 - XR KNEE 4V AP/PA BOTH+LAT/LACHO RT / PROCEDURE REASON: Acute pain of right knee * * * * Physician Interpretation * * * * EXAMINATION: XR KNEE 4V AP/PA BOTH+LAT/LACHO RT HISTORY: pt fell while skateboarding and injured right knee Acute pain of right knee . TECHNIQUE: XR KNEE 4V AP/PA BOTH+LAT/LACHO RT Laterality: RIGHT Number of different views (projections): 4 M: XB_1 COMPARISON: None. RESULT: FRACTURE: None. ALIGNMENT: Lateral positioning/tilt of both patellas. EFFUSION: No knee joint effusion. SOFT TISSUES: Mild soft tissue swelling. No radiopaque foreign body. OTHER FINDINGS: None. DIVISION OF RADIOLOGY Provider, [facility] - 12/19/2021 * * *Final Report* * * DATE OF EXAM: Dec 19 2021 4:12PM WOX 5203 - XR KNEE 4V AP/PA BOTH+LAT/LACHO RT / PROCEDURE REASON: Acute pain of right knee * * * * Physician Interpretation * * * * EXAMINATION: XR KNEE 4V AP/PA BOTH+LAT/LACHO RT HISTORY: pt fell while skateboarding and injured right knee Acute pain of right knee . TECHNIQUE: XR KNEE 4V AP/PA BOTH+LAT/LACHO RT Laterality: RIGHT Number of different views (projections): 4 M: XB_1 COMPARISON: None. RESULT: FRACTURE: None. ALIGNMENT: Lateral positioning/tilt of both patellas. EFFUSION: No knee joint effusion. SOFT TISSUES: Mild soft tissue swelling. No radiopaque foreign body. OTHER FINDINGS: None. IMPRESSION IMPRESSION: * Soft tissue swelling, but no fracture. * Abnormal alignment of both patellas, but no antonietta subluxation. Inspector Bullet Slugs: KASIA Transcribe Date/Time: Dec 19 2021 4:31P Dictated by : KATH CHIANG MD This examination was interpreted and the report reviewed and electronically signed by: KATH CHIANG MD on Dec 19 2021 4:37PM EST [facility] Radiology Study observation (narrative) [facility] XR Knee - right 4 ViewsOrder ed By: [facility] Provider on 12-19-2021 [facility] XR Shoulder - right 3 Viewso n 07-30-2020 IMPRESSION: No fracture. Inspector Bullet Slugs: KASIA Transcribe Date/Time: Jul 30 2020 4:13P Dictated by : RELL GRAHAM DO This examination was interpreted and the report reviewed and electronically signed by: RELL GRAHAM DO on Jul 30 2020 4:14PM EST DIVISION OF RADIOLOGY * * *Final Report* * * DATE OF EXAM: Jul 30 2020 4:01PM WOX 5253 - XR SHLDR >/=3V AP/LUCILA AP/OTHR RT / PROCEDURE REASON: Acute pain of right shoulder * * * * Physician Interpretation * * * * EXAM: XR SHLDR >/=3V AP/LUCILA AP/OTHR RT -- RIGHT TECHNIQUE: 3 views of the right shoulder EXAM DATE: 07/30/2020 4:01 PM CLINICAL HISTORY: Acute pain of right shoulder COMPARISON: None FINDINGS: Right humeral head is well positioned at the bony glenoid. There is no fracture or dislocation. Visualized right ribs are intact. DIVISION OF RADIOLOGY Provider, Reza Willett - 07/30/2020 * * *Final Report* * * DATE OF EXAM: Jul 30 2020 4:01PM WOX 5253 - XR SHLDR >/=3V AP/LUCILA AP/OTHR RT / PROCEDURE REASON: Acute pain of right shoulder * * * * Physician Interpretation * * * * EXAM: XR SHLDR >/=3V AP/LUCILA AP/OTHR RT -- RIGHT TECHNIQUE: 3 views of the right shoulder EXAM DATE: 07/30/2020 4:01 PM CLINICAL HISTORY: Acute pain of right shoulder COMPARISON: None FINDINGS: Right humeral head is well positioned at the bony glenoid. There is no fracture or dislocation. Visualized right ribs are intact. IMPRESSION IMPRESSION: No fracture. Inspector Bullet Slugs: KASIA Transcribe Date/Time: Jul 30 2020 4:13P Dictated by : RELL GRAHAM DO This examination was interpreted and the report reviewed and electronically signed by: RELL GRAHAM DO on Jul 30 2020 4:14PM EST [facility] Radiology Study observation (narrative) [facility] XR Shoulder - right 3 ViewsO rdered By: Reza Provider on 07-30-2020 [facility] Vital Signs Date Time Vital Sign Value Performing Clinician Facility 05-16-2024 13:35-0400 Body temperature 99.1 [degF] Alesia Mccloud APRN.MUD ENGINEER Work Phone: [facility] 05-16-2024 13:35-0400 Body weight 52.6 kg Alesia Mccloud TOP KNITTER.MUD ENGINEER Work Phone: [facility] 05-16-2024 13:35-0400 Diastolic blood pressure 72 mm[Hg] Alesia Mccloud TOP KNITTER.MUD ENGINEER Work Phone: [facility] 05-16-2024 13:35-0400 Heart rate 95 /min Alesia Rogers TOP KNITTER.MUD ENGINEER Work Phone: [facility] 05-16-2024 13:35-0400 Respiratory rate 18 /min Alesia Rogers TOP KNITTER.MUD ENGINEER Work Phone: [facility] 05-16-2024 13:35-0400 SaO2% (BldA) [Mass fraction] 98 % Alesia Rogers TOP KNITTER.MUD ENGINEER Work Phone: [facility] 05-16-2024 13:35-0400 Systolic blood pressure 106 mm[Hg] Alesia Rogers TOP KNITTER.MUD ENGINEER Work Phone: [facility] 06-08-2023 15:24-0400 Body temperature 98.71 [degF] Lidia Jaziel TOP KNITTER.MUD ENGINEER Work Phone: [facility] 06-08-2023 15:24-0400 Body weight 55.97 kg Lidia Leal APRN.MUD ENGINEER Work Phone: [facility] 06-08-2023 15:24-0400 Diastolic blood pressure 72 mm[Hg] Lidia Leal TOP KNITTER.MUD ENGINEER Work Phone: [facility] 06-08-2023 15:24-0400 Heart rate 107 /min Lidia Leal TOP KNITTER.MUD ENGINEER Work Phone: [facility] 06-08-2023 15:24-0400 Respiratory rate 22 /min Lidia Leal TOP KNITTER.MUD ENGINEER Work Phone: [facility] 06-08-2023 15:24-0400 SaO2% (BldA) [Mass fraction] 99 % Lidia Leal TOP KNITTER.MUD ENGINEER Work Phone: [facility] 06-08-2023 15:24-0400 Systolic blood pressure 110 mm[Hg] Lidia Leal APRN.MUD ENGINEER Work Phone: [facility] 12-29-2022 16:20-0400 Body temperature 99.3 [degF] Krislyn Aberegg PA Work Phone: [facility] 12-29-2022 16:20-0400 Body weight 56.7 kg Krislyn Aberegg PA Work Phone: [facility] 12-29-2022 16:20-0400 Diastolic blood pressure 72 mm[Hg] Krislyn Aberegg PA Work Phone: [facility] 12-29-2022 16:20-0400 Heart rate 111 /min Krislyn Aberegg PA Work Phone: [facility] 12-29-2022 16:20-0400 Respiratory rate 23 /min Krislyn Aberegg PA Work Phone: [facility] 12-29-2022 16:20-0400 SaO2% (BldA) [Mass fraction] 99 % Krislyn Aberegg PA Work Phone: [facility] 12-29-2022 16:20-0400 Systolic blood pressure 120 mm[Hg] Krislyn Aberegg PA Work Phone: [facility] 07-30-2022 10:43-0500 Respiratory rate 16 /min [facility] Work Phone: 07-30-2022 08:04-0500 Body height 170.18 cm [facility] Work Phone: 07-30-2022 08:04-0500 Body mass index (BMI) [Percentile] Per age and sex 22.2 % [facility] Work Phone: 07-30-2022 08:04-0500 Body mass index (BMI) [Ratio] 19.5 kg/m2 [facility] Work Phone: 07-30-2022 08:04-0500 Body temperature 97.9 [degF] [facility] Work Phone: 07-30-2022 08:04-0500 Body weight 56.69 kg [facility] Work Phone: 07-30-2022 08:04-0500 Diastolic blood pressure 80 mm[Hg] [facility] Work Phone: 07-30-2022 08:04-0500 Heart rate 90 /min [facility] Work Phone: 07-30-2022 08:04-0500 SaO2% (BldA) [Mass fraction] 100 % [facility] Work Phone: 07-30-2022 08:04-0500 Systolic blood pressure 120 mm[Hg] [facility] Work Phone: 06-26-2022 16:43-0400 Body temperature 98.91 [degF] Jeff Pendlebury TOP KNITTER.MUD ENGINEER Work Phone: [facility] 06-26-2022 16:43-0400 Body weight 54.43 kg Jeff Pendlecarlos TOP KNITTER.MUD ENGINEER Work Phone: [facility] 06-26-2022 16:43-0400 Diastolic blood pressure 64 mm[Hg] Jeff Pendlebury TOP KNITTER.MUD ENGINEER Work Phone: [facility] 06-26-2022 16:43-0400 Heart rate 93 /min Jeff Pendlebury TOP KNITTER.MUD ENGINEER Work Phone: [facility] 06-26-2022 16:43-0400 Respiratory rate 16 /min Jeff Pendlebury TOP KNITTER.MUD ENGINEER Work Phone: [facility] 06-26-2022 16:43-0400 SaO2% (BldA) [Mass fraction] 97 % Jeff Vernonlecarlos TOP KNITTER.MUD ENGINEER Work Phone: [facility] 06-26-2022 16:43-0400 Systolic blood pressure 98 mm[Hg] Jeff Pendlebury TOP KNITTER.MUD ENGINEER Work Phone: [facility] 04-14-2022 23:04-0400 Body height 172.72 cm [facility] Work Phone: 04-14-2022 23:04-0400 Body mass index (BMI) [Percentile] Per age and sex 16.6 % [facility] Work Phone: 04-14-2022 23:04-0400 Body mass index (BMI) [Ratio] 19 kg/m2 [facility] Work Phone: 04-14-2022 23:04-0400 Body temperature 96.9 [degF] [facility] Work Phone: 04-14-2022 23:04-0400 Body weight 56.69 kg [facility] Work Phone: 04-14-2022 23:04-0400 Diastolic blood pressure 78 mm[Hg] [facility] Work Phone: 04-14-2022 23:04-0400 Heart rate 93 /min [facility] Work Phone: 04-14-2022 23:04-0400 Respiratory rate 15 /min [facility] Work Phone: 04-14-2022 23:04-0400 SaO2% (BldA) [Mass fraction] 100 % [facility] Work Phone: 04-14-2022 23:04-0400 Systolic blood pressure 122 mm[Hg] [facility] Work Phone: 12-23-2021 15:59-0400 Diastolic blood pressure 75 mm[Hg] [facility] 12-23-2021 15:59-0400 Heart rate 84 /min [facility] 12-23-2021 15:59-0400 Respiratory rate 16 /min DESIRAE REICHFIELD DO [facility] 12-23-2021 15:59-0400 Systolic blood pressure 118 mm[Hg] DESIRAE REICHFIELD DO [facility] 12-23-2021 14:30-0400 Body temperature 96.8 [degF] DESIRAE REICHFIELD DO [facility] 12-23-2021 14:30-0400 Body weight 56 kg DESIRAE REICHFIELD DO [facility] 12-23-2021 14:30-0400 Diastolic blood pressure 78 mm[Hg] DESIRAE REICHFIELD DO [facility] 12-23-2021 14:30-0400 Heart rate 88 /min DESIRAE REICHFIELD DO [facility] 12-23-2021 14:30-0400 Respiratory rate 16 /min DESIRAE REICHFIELD DO [facility] 12-23-2021 14:30-0400 Systolic blood pressure 118 mm[Hg] DESIRAE REICHFIELD DO [facility] Encounters Encounter Date Encounter Type Care Provider Facility Start: 06-21-2025 End: 06-21-2025 [facility] Facility:[facility] Start: 02-10-2025 End: 02-10-2025 ambulatory [facility] Facility:[facility] Start: 05-16-2024 End: 05-16-2024 Subsequent hospital visit by physician Xr [facility] Work Phone: Radiology Comment on above: Injury of right lowe r extremity, initial encounter [S89.91XA] Start: 05-16-2024 End: 05-16-2024 Patient encounter procedure Alesia Mccloud APRN.MUD ENGINEER Work Phone: [facility] Comment on above: Skin infection (Prim isabelle Dx); Injury of right lower extremity, initial encounter; Injury of left knee, initial encounter Start: 10-26-2023 End: 10-26-2023 ambulatory SELF REFERRED [facility] Start: 06-09-2023 End: 06-10-2023 ambulatory [facility] Start: 06-09-2023 End: 06-09-2023 ambulatory [facility] Work Phone: Start: 06-09-2023 End: 06-09-2023 Patient encounter procedure [facility] [place] Work Phone: Start: 06-09-2023 End: 06-09-2023 Subsequent hospital visit by physician Bhargavi Jackson DO Work Phone: [facility] Comment on above: Abdominal pain, unsp ecified abdominal location Start: 06-08-2023 End: 06-08-2023 Patient encounter procedure Lidia Leal APRN.MUD ENGINEER Work Phone: [facility] Comment on above: Acute constipation ( Primary Dx) Start: 12-29-2022 End: 12-29-2022 Emergency department patient visit [facility] Facility:[facility] Start: 12-29-2022 End: 12-29-2022 Patient encounter procedure Tanner BENNETT Work Phone: [facility] Comment on above: RLQ abdominal pain ( Primary Dx) Start: 07-30-2022 End: 07-30-2022 Emergency department patient visit [facility] Facility:[facility] Start: 07-30-2022 End: 07-30-2022 Emergency department patient visit [facility] Start: 06-27-2022 Telephone encounter Jeff lindquist APRN.MUD ENGINEER Work Phone: [facility] Comment on above: Results Start: 06-26-2022 End: 06-26-2022 Patient encounter procedure Jeff Castillo SAVANNAH.MUD ENGINEER Work Phone: [facility] Comment on above: Screening for STD (s exually transmitted disease) (Primary Dx); Nausea; Suspected COVID-19 virus infection Start: 04-15-2022 End: 04-15-2022 Emergency department patient visit [facility] Facility:[facility] Start: 04-14-2022 End: 04-14-2022 Emergency department patient visit [facility] Start: 01-16-2022 ambulatory No Pcp [facility] Start: 12-23-2021 End: 12-23-2021 Emergency department patient visit DESIRAE GIRON DO [facility] Start: 12-19-2021 End: 12-19-2021 Subsequent hospital visit by physician Xr [facility] Work Phone: Radiology Comment on above: Acute pain of right knee [M25.561] Start: 07-30-2020 End: 07-30-2020 Subsequent hospital visit by physician Xr [facility] Work Phone: Radiology Comment on above: Acute pain of right shoulder [M25.511] Procedures Date Procedure Procedure Detail Performing Clinician Start: 05-16-2024 Radiologic exam knee complete 4/more views Alesia Mccloud APRN.MUD ENGINEER Work Phone: Start: 05-16-2024 Radiologic examinati on tibia & fibula 2 views Alesia Mccloud APRN.MUD ENGINEER Work Phone: Start: 06-09-2023 Diagnostic radiograp hy of abdomen Start: 06-09-2023 C-reactive protein Brian Isaacs DO Work Phone: Start: 06-09-2023 COMPLETE BLOOD COUNT WITH DIFFERENTIAL Bhargavi Jackson DO Work Phone: Start: 09-19-2023 Comprehensive metabo lic 2000 panel - Serum or Plasma Bhargavi Jackson DO Work Phone: Start: 06-09-2023 Hemoglobin A1c/Hemoglobin.total in Blood Bhargavi Jackson DO Work Phone: Start: 06-09-2023 IMMUNOGLOBULIN A Bhargavi Jackson DO Work Phone: Start: 06-09-2023 TSH WITH REFLEX TO T4, FREE Bhargavi Jackson DO Work Phone: Start: 06-09-2023 VITAMIN D 25 HYDROXY(VITAMIN D DEFICIENCY) Bhargavi Jackson DO Work Phone: Start: 06-26-2022 Urine test visual color cmprsn meths Jeff Castillo TOP KNITTER.MUD ENGINEER Work Phone: Start: 12-19-2021 Radiologic exam knee complete 4/more views Lidia Leal TOP KNITTER.MUD ENGINEER Work Phone: Start: 07-30-2020 End: 07-30-2020 Radex shoulder complete minimum 2 views Rich Arana MD Work Phone: Tonsillectomy DESIRAE MCKAY DO Plan of Treatment Date Care Activity Detail Author Start: 10-31-2025 Tetanus Diphtheria and Pertussis Vaccines (7 - Td or Tdap) Tetanus Diphtheria and Pertussis Vaccines (7 - Td or Tdap) [facility] Start: 10-31-2025 Urine microalbumin profile DTaP,Tdap,Td Vaccine (7 - Td or Tdap) [facility] Start: 2024 Screening for malignant neoplasm of cervix Cervical Cancer Screening [facility] Start: 05-22-2024 Covid-19 Vaccine ( season) Covid-19 Vaccine ( season) [facility] Start: 05-22-2024 Influenza [facility] Start: 09-10-2023 Well Visit Well Visit [facility] Start: 09-07-2023 End: 09-07-2023 Patient encounter procedure 09/07/2023 2:15 PM EST Office Visit DANITZA Asher[address] [place] [address] [id number] Ani Link MD [address] [place], [place] [id number] [facility] Start: 06-26-2023 CHLAMYDIA SCREENING (18-24) CHLAMYDIA SCREENING (18-24) [facility] Start: 06-26-2023 GC (GONORRHEA) SCREENING (18-24) GC (GONORRHEA) SCREENING (18-24) [facility] Start: 06-26-2023 Screening for Chlamydia trachomatis Chlamydia Screening (18-) [facility] Start: 05-22-2023 Covid-19 Vaccine ( season) Covid-19 Vaccine ( season) [facility] Start: 05-22-2023 FLU (#1) FLU (#1) [facility] Start: 05-22-2023 Influenza vaccination Influenza Vaccine (#1) [facility] Start: 09-21-2022 DEPRESSION ASSESSMENT DEPRESSION ASSESSMENT [facility] Start: 06-26-2022 End: 07-10-2022 Influenza virus A and B RNA and SARS-CoV-2 (COVID-19) N gene panel - Respiratory specimen by ISABELLA with probe detection COVID WITH FLUA+B, ROUTINE Microbiology Routine Nausea Suspected COVID-19 virus infection Expected: 06/26/2022, Expires: 07/10/2022 [facility] Work Phone: Comment on above: Expected: 06/26/2022, Expires: 2 Start: 05-22-2022 Influenza vaccination [facility] Start: 04-14-2022 Simple repair scalp/neck/ax/genit/trunk 2.5cm/< RPR S/N/AX/GEN/TRNK 2.5CM/< [facility] Work Phone: Start: 10-16-2021 CHLAMYDIA SCREENING (18-24) CHLAMYDIA SCREENING (18-24) [facility] Start: 10-16-2021 GC (GONORRHEA) SCREENING (18-24) GC (GONORRHEA) SCREENING (18-24) [facility] Start: 09-21-2021 DEPRESSION ASSESSMENT DEPRESSION ASSESSMENT [facility] Start: 2021 Anxiety Screening Anxiety Screening [facility] Start: 2021 Depression Screening Depression Screening [facility] Start: 2021 Hearing Screening Hearing Screening [facility] Start: 2019 Meningococcal B Vaccine: Consider Based On Risk (1 of 2 - Patient Seeks Protection) Meningococcal B Vaccine: Consider Based On Risk (1 of 2 - Patient Seeks Protection) [facility] Start: 2019 MENINGOCOCCAL CONJUGATE (1 - 2-dose series) MENINGOCOCCAL CONJUGATE (1 - 2-dose series) [facility] Start: 2017 PEDS TO ADULT TRANSITION ANNUAL ASSESSMENT PEDS TO ADULT TRANSITION ANNUAL ASSESSMENT [facility] Start: 2015 Adult depression screening assessment DEPRESSION SCREENING [facility] Start: 2015 PEDS TO ADULT TRANSITION INITIAL DISCUSSION PEDS TO ADULT TRANSITION INITIAL DISCUSSION [facility] Start: 2014 HPV VACCINE (1 - 2-dose series) HPV VACCINE (1 - 2-dose series) [facility] Start: 2014 Urine microalbumin profile [facility] Start: 2013 MENINGOCOCCAL B: Consider based on risk (1 of 2 - Risk Bexsero 2-dose series) MENINGOCOCCAL B: Consider based on risk (1 of 2 - Risk Bexsero 2-dose series) [facility] Start: 2012 HPV Vaccine (1 - 2-dose series) HPV Vaccine (1 - 2-dose series) [facility] Start: 2009 Pneumococcal vaccination Pneumococcal Vaccine (1 of 2 - PCV) [facility] Start: 2008 COVID-19 VACCINE (1) COVID-19 VACCINE (1) [facility] Start: 2003 COVID-19 (#1) COVID-19 (#1) [facility] Start: 2003 COVID-19 VACCINE (#1) COVID-19 VACCINE (#1) [facility] Chlamydia trachomatis+Neisseria gonorrhoeae DNA [Presence] in Unspecified specimen by ISABELLA with probe detection GC/CHLAMYDIA DNA DET Lab Routine Screening for STD (sexually transmitted disease) Ordered: 06/26/2022 [facility] Work Phone: Comment on above: Ordered: 06/26/2022 Patient Education [facility] Work Phone: Patient referral [facility] Work Phone: Transglutaminase IgA Transglutam inase IgA Lab Routine Abdominal pain, unspecified abdominal location 06/09/2023 4:23 PM EDT [facility] Work Phone: Immunizations Immunization Date Immunization Notes Care Provider Desmond wesley 09-10-2022 influenza, injectabl e, quadrivalent, preservative free Bhargavi Kruepke DO Work Phone: [facility] 09-10-2022 meningococcal B vacc ine, recombinant, OMV, adjuvanted Bhargavi Kruepke DO Work Phone: [facility] 09-10-2022 influenza virus vacc ine, unspecified formulation Lidia Leal APRN.MUD ENGINEER Work Phone: [facility] 11-30-2019 influenza, injectabl e, quadrivalent, preservative free Bhargavi Kruepke DO Work Phone: [facility] 11-30-2019 meningococcal B vacc ine, recombinant, OMV, adjuvanted Bhargavi Kruepke DO Work Phone: [facility] 11-30-2019 meningococcal polysaccharide (groups A, C, Y and W-135) diphtheria toxoid conjugate vaccine (MCV4P) Bhargavi Joke DO Work Phone: [facility] 09-28-2018 influenza, injectabl e, quadrivalent, preservative free Bhargavi Kruepke DO Work Phone: [facility] 06-17-2017 hepatitis A vaccine, pediatric/adolescent dosage, 2 dose schedule Bhargavi Kruepke DO Work Phone: [facility] 06-17-2017 Human Papillomavirus 9-valent vaccine Bhargavi Kruepke DO Work Phone: [facility] 06-17-2017 influenza, injectabl e, quadrivalent, preservative free Bhargavi Kruepke DO Work Phone: [facility] 07-29-2016 Human Papillomavirus 9-valent vaccine Bhargavi Jackson DO Work Phone: [facility] 04-23-2016 hepatitis A vaccine, pediatric/adolescent dosage, 2 dose schedule Bhargavi Jackson DO Work Phone: [facility] 04-23-2016 Human Papillomavirus 9-valent vaccine Bhargavi Jackson DO Work Phone: [facility] 04-23-2016 measles, mumps and rubella virus vaccine Bhargavi Jackson DO Work Phone: [facility] 04-23-2016 poliovirus vaccine, inactivated Bhargaviweston Jackson DO Work Phone: [facility] 04-23-2016 varicella virus vaccine Brian Beltran DO Work Phone: [facility] 10-31-2015 meningococcal polysaccharide (groups A, C, Y and W-135) diphtheria toxoid conjugate vaccine (MCV4P) Bhargavi Burtonjorgegabe DO Work Phone: [facility] 10-31-2015 tetanus toxoid, redu lesley diphtheria toxoid, and acellular pertussis vaccine, adsorbed Bhargaviweston Jackson DO Work Phone: [facility] 07-30-2015 influenza, injectabl e, quadrivalent, preservative free Bhargavi Burtonjorgegabe DO Work Phone: [facility] 06-21-2014 influenza, injectabl e, quadrivalent, preservative free Bhargavi Burtonjorgegabe DO Work Phone: [facility] 08-22-2013 Influenza Vaccine 0. 5 mL >= 3 Yr Trivalent Bhargavi Burtonkaterin DO Work Phone: [facility] 07-07-2012 influenza virus vacc ine, split virus (incl. purified surface antigen) Bhargavi Burtonkaterin DO Work Phone: [facility] 06-30-2011 influenza virus vacc ine, live, attenuated, for intranasal use Bhargavi Ac DO Work Phone: [facility] 05-09-2009 diphtheria, tetanus toxoids and acellular pertussis vaccine No [facility] Work Phone: 05-09-2009 measles, mumps and rubella virus vaccine No [facility] Work Phone: 05-09-2009 poliovirus vaccine, inactivated No [facility] Work Phone: 05-19-2005 diphtheria, tetanus toxoids and acellular pertussis vaccine No [facility] 05-19-2005 haemophilus influenz ae type b vaccine, HbOC conjugate No [facility] 05-19-2005 measles, mumps and rubella virus vaccine No [facility] 05-19-2005 pneumococcal conjuga te vaccine, 7 valent Bhargavi Jackson DO Work Phone: [facility] 05-15-2005 pneumococcal conjuga te vaccine, 7 valent No [facility] 06-25-2004 pneumococcal conjuga te vaccine, 7 valent No [facility] 06-25-2004 varicella virus vaccine No [facility]cp [facility] 01-22-2004 diphtheria, tetanus toxoids and acellular pertussis vaccine Bhargavi Jackson DO Work Phone: [facility] 01-22-2004 DTaP-hepatitis B and poliovirus vaccine No [facility] 01-22-2004 haemophilus influenz ae type b vaccine, HbOC conjugate No [facility] 01-22-2004 hepatitis B vaccine, pediatric or pediatric/adolescent dosage Bhargavi Jackson DO Work Phone: [facility] 01-22-2004 pneumococcal conjuga te vaccine, 7 valent No [facility] 01-22-2004 poliovirus vaccine, inactivated Bhargavi Jackson DO Work Phone: [facility] 2003 diphtheria, tetanus toxoids and acellular pertussis vaccine Bhargavi Jackson DO Work Phone: [facility] 2003 DTaP-hepatitis B and poliovirus vaccine No [facility] 2003 haemophilus influenz ae type b vaccine, HbOC conjugate No Pcp [facility] 2003 hepatitis B vaccine, pediatric or pediatric/adolescent dosage Bhargavi Jackson DO Work Phone: [facility] 2003 pneumococcal conjuga te vaccine, 7 valent No [facility]cp [facility] Work Phone: 2003 poliovirus vaccine, inactivated Bhargavi Josephinepke DO Work Phone: [facility] 2003 diphtheria, tetanus toxoids and acellular pertussis vaccine Bhargaviweston Burtonpke DO Work Phone: [facility] 2003 DTaP-hepatitis B and poliovirus vaccine No Pcp [facility] Work Phone: 2003 haemophilus influenz ae type b vaccine, HbOC conjugate No [facility] Work Phone: 2003 hepatitis B vaccine, pediatric or pediatric/adolescent dosage Bhargavi Jackson DO Work Phone: [facility] 2003 poliovirus vaccine, inactivated Bhargavi Krdarrylpke DO Work Phone: [facility] Payers Date Payer Category Payer Unknown [id number] 2022 Private Health Insurance [id number] 2022 Self-pay [id number] 2022 Unknown [id number] 2019 Private Health Insurance TREMAYNE KWON [id number] 2019-Present [phone] [address] [place] [id number] Open Access [id number] 2019 Private Health Insurance [id number] 2019 Medicaid [employer]ICA[employer] [facility] MEDICA[facility] [id number] 2019-Present [phone] [address] [place] [address] Medicaid [id number] 2019 Medicaid [id number] 2015 Unknown BLAZE [facility] [id number] 2015-Present [address] [place] [address] [id number] 2003 Unknown [id number] 2003 Unknown [id number] 2003 Unknown [id number] Unknown [id number] Unknown [id number] Unknown [id number] Social History Date Type Detail Facility Tobacco smoking status [facility] Start: 2003 Sex Assigned At Female A [facility] Start: 12-23-2017 End: 06-26-2022 Tobacco smoking status NEIS Never smoked tobacco [facility] Start: 12-19-2021 End: 05-16-2024 Alcohol intake Lifetime non-drinker (finding) [facility] Start: 12-19-2021 History SDOH Alcohol Frequency 1 [facility] Start: 05-10-2010 End: 06-26-2022 Tobacco Comment Mom smokes. [facility] Start: 2003 Sex Assigned At Not on file [facility] Start: 06-30-2020 End: 06-26-2022 Exposure to SARS-CoV-2 (event) Not sure [facility] Start: 04-14-2022 End: 12-29-2022 Tobacco smoking status NEIS Unknown if ever smoked [facility] History of tobacco use Passive smoker [facility] Start: 12-23-2017 End: 06-26-2022 Tobacco use and exposure Smokeless tobacco non-user [facility] Start: 07-30-2020 End: 06-08-2023 History of Social function [facility] Start: 07-30-2020 End: 06-08-2023 Tobacco use panel [facility] National Score (1-10 0), lower number is lower risk Not on file [facility] Start: 09-10-2022 End: 09-30-2023 Tobacco smoking status NHIS Smokes tobacco daily [facility] History of tobacco use Tobacco U se Types Packs/Day Years Used Date Smoking Tobacco: Every Day Vaping Passive Smoke Exposure: Yes Smokeless Tobacco: Never [facility] Start: 07-30-2020 End: 06-09-2023 Alcohol intake Not Asked [facility] Start: 09-30-2023 Tobacco use and exposure User of smokeless tobacco [facility] Start: 09-30-2023 Tobacco Comment Vape [facility] Functional Status Date Assessment Result Facility 12-23-2021 Functional Status [facility] 12-23-2021 Functional Status [facility] Mental Status Date Assessment Result Facility 12-23-2021 Mental Status [facility] [place] 12-23-20[facility] Clinical Notes 07-30-2020 to 06-21-2025 Alesia Mccloud APRN.RICH - 05/16/2024 2:13 PM Minnie Faye RT(R) - 05/16/2024 1:50 PM Lidia Mata APRN.RICH - 06/08/2023 3:39 PM EDTSABRINA Montez - 12/29/2022 4:27 PM EDT Note Date & Type Note Facility 06-21-2025 Note HNO ID: [id number] Author: CAROL CANSECO RT(R) Service: ? Author Type: [employer] C[employer] Type: Progress Notes Filed: 06/21/2025 14:01 Note Text: Radiology Service Progress Note PATIENT NAME: Mare Mandujano DATE OF SERVICE: June 21, 2025 TIME: 1:54 PM PATIENT IDENTITY VERIFICATION COMPLETED USING TWO (2) IDENTIFIERS: Name and Date of confirmed by patient verbally. FALL SCREENING: Has the patient had 2 falls in the last year or 1 fall with injury or currently using an Ambulatory Assistive Device (Walker, Cane, Wheelchair, Crutches, etc.)? No PATIENT GENDER DATA: Assigned female at . status: : No status: NO. PATIENT RELEVANT IMPLANT DATA REVIEWED: Yes PATIENT PRESENTS WITH AN IMPLANTABLE OR ATTACHED SYSTEMS PROGRAMMER ANALYST: No RADIOLOGY DEPARTMENT: General X-ray: Exam(s) Completed: Chest X-Ray PERIPHERAL IV DATA: Not applicable SIGNED BY: RT Timo(R) June 21, 2025 1:54 PM [facility] 06-21-2025 Note HNO ID: [id number] Author: ALESIA MCCLOUD APRN.MUD ENGINEER Service: ? Author Type: Nurse Practitioner Type: Progress Notes Filed: 06/21/2025 15:02 Note Text: [facility] Subjective HPI HPI Mare Mandujano is a 20 year old female who presents today for CC of cough, wheezing, sob, congestion. This started 1.5 weeks ago. Has tried otc medication for relief. Symptoms are worsened by nothing. Risk factors sick exposures. Smoker. Denies possibility of being . .Patient presents with: Cough: Chest congestion x1.5 weeks PAST MEDICAL HISTORY Diagnosis Date ADHD (attention deficit hyperactivity disorder) No past surgical history on file. ALLERGIES Claritin [Loratadine] MEDICATIONS ondansetron orally disintegrating (ZOFRAN ODT) 4 mg disintegrating tablet Take 1 tablet by mouth every 8 hours as needed. (Patient not taking: Reported on 06/21/2025) polyethylene glycol 3350 (MIRALAX) 17 gram/dose powder 17 grams a day mixed with water (Patient not taking: Reported on 06/21/2025) albuterol HFA (PROVENTIL HFA, VENTOLIN HFA) 90 mcg/actuation inhaler Inhale 2 Puffs as instructed every 4 hours as needed for wheezing/shortness of breath. (Patient not taking: Reported on 12/19/2021 ) FAMILY HISTORY Problem Relation Age of Onset Cervical Cancer Mother Allergies Father Allergies Mother Cancer Paternal Grandmother Cancer Asthma Mother SOCIAL HISTORY[1] Review of Systems Constitutional: Negative for chills, fatigue and fever. HENT: Positive for rhinorrhea and sore throat. Negative for ear discharge, ear pain, sinus pressure and sinus pain. Eyes: Negative for discharge and redness. Respiratory: Positive for cough, shortness of breath and wheezing. Cardiovascular: Negative for chest pain. Skin: Negative for rash. Objective BP 122/80 Pulse 120 Temp 36.7 ?C (98.1 ?F) Resp 18 Wt 52 kg (114 lb 10.2 oz) LMP 11/30/2022 SpO2 97% Physical Exam Constitutional: General: She is not in acute distress. Appearance: She is not toxic-appearing or diaphoretic. HENT: Head: Normocephalic and atraumatic. Cardiovascular: Rate and Rhythm: Normal rate and regular rhythm. Heart sounds: Normal heart sounds, S1 normal and S2 normal. Pulmonary: Effort: Pulmonary effort is normal. Breath sounds: Wheezing (scattered bilat) and rhonchi (scattered bilat) present. No decreased breath sounds or rales. Neurological: Mental Status: She is alert and oriented to person, place, and time. {ASSESSMENT/PLAN: 1. Sinobronchitis - ICD9: 473.9, 490, ICD10: J32.9, J40 (primary diagnosis) - Will begin treatment with as per antibiotic as written, see orders - Supportive care with plenty of fluids, rest, and analgesia prn. - Follow up in 3-5 days if symptoms persist or worsen. - DOXYCYCLINE MONOHYDRATE 100 MG TABLET - PREDNISONE 10 MG TABLET - ALBUTEROL SULFATE HFA 90 MCG/ACTUATION AEROSOL INHALER 2. Rhonchi - ICD9: 786.7, ICD10: R09.89 - XR CHEST 2V FRONTAL/LAT IMPRESSION: No acute radiographic abnormality. Dictated by : MD Alesia SYLVESTER APRN.MUD ENGINEER History and Record Review External record(s) reviewed: prior outpatient record. Disposition The patient was discharged. Procedures [1] Social History Tobacco Use Smoking status: Every Day Passive exposure: Yes Smokeless tobacco: Current Tobacco comments: Vape Substance Use Topics Alcohol use: Never Drug use: Never [facility] 02-10-2025 Note HNO ID: [id number] Author: LIDIA LEAL APRN.MUD ENGINEER Service: ? Author Type: Nurse Practitioner Type: Progress Notes Filed: 02/10/2025 17:26 Note Text: [facility] Subjective Mare Mandujano is a 19 year old female. Patient presents with: Abdominal Pain: Lower abdominal pain x1 day HPI Nausea and Abdominal Pain: - Onset yesterday; feels better today. - Able to drink water today without emesis; has not eaten yet. - Urination is normal. - Symptoms are intermittent. - Describes abdominal discomfort as cramping. - Attributes symptoms to a gut issue and possible illness from classmates. - Suspects inadequate water intake may contribute to symptoms. Review of Systems Constitutional: (+) generalized discomfort Gastrointestinal: (+) nausea, (+) abdominal cramping, (-) vomiting, (-) severe pain Genitourinary: (-) urinary complaints Objective BP 120/80 Pulse 87 Temp 36.4 ?C (97.5 ?F) Resp 18 Wt 53.8 kg (118 lb 9.7 oz) LMP 11/30/2022 SpO2 98% Physical Exam General: No acute distress. Resp: Clear breath sounds bilaterally. Abd: Normoactive bowel sounds; mild discomfort with palpation, no severe pain. {1. Nausea (R11.0) - Symptoms improved today; able to tolerate water intake, no emesis reported. - Abdominal exam reveals normal bowel sounds, mild discomfort with palpation, no severe tenderness. - Advised rest, adequate hydration, and gradual introduction of bland foods. - Provided work note. and Recording using weeSpring software for draft documentation of the visit was discussed with the patient/authorized business services representative; all questions welcomed and answered. Patient/authorized business services representative agreed to proceed MDM Procedures [facility] 05-16-2024 History of Presen t illness Narrative Images from the original note were not included. Subjective HPI HPI Mare Mandujano is a 18 year old female who presents today for CC of right leg and left knee injury, multiple falls while skateboarding and riding scooter. This started 1 day ago. Has tried nothing for relief. Symptoms are worsened by rom of both knees/right leg. .Patient presents with: left knee and right ankle pain: Wrecked her scooter yesterday PAST MEDICAL HISTORY No date: ADHD (attention deficit hyperactivity disorder) No past surgical history on file. ALLERGIES Claritin [Loratadine] MEDICATIONS ondansetron orally disintegrating (ZOFRAN ODT) 4 mg disintegrating tablet Take 1 tablet by mouth every 8 hours as needed. polyethylene glycol 3350 (MIRALAX) 17 gram/dose powder 17 grams a day mixed with water albuterol HFA (PROVENTIL HFA, VENTOLIN HFA) 90 mcg/actuation inhaler Inhale 2 Puffs as instructed every 4 hours as needed for wheezing/shortness of breath. (Patient not taking: Reported on 12/19/2021 ) FAMILY HISTORY Problem Relation Age of Onset Cervical Cancer Mother Allergies Father Allergies Mother Cancer Paternal Grandmother Cancer Asthma Mother Social History Tobacco Use Smoking status: Every Day Passive exposure: Yes Smokeless tobacco: Current Tobacco comments: Vape Substance Use Topics Alcohol use: Never Drug use: Never Review of Systems Constitutional: Negative for fever. Objective Blood pressure 106/72, pulse 95, temperature 37.3 C (99.1 F), temperature source Tympanic, resp. rate 18, weight 52.6 kg (115 lb 15.4 oz), last menstrual period 11/30/2022, SpO2 98%. Physical Exam Constitutional: General: She is not in acute distress. Appearance: She is not toxic-appearing or diaphoretic. HENT: Head: Normocephalic and atraumatic. Pulmonary: Effort: Pulmonary effort is normal. No accessory muscle usage or respiratory distress. Musculoskeletal: Legs: Neurological: Mental Status: She is alert and oriented to person, place, and time. ASSESSMENT/PLAN: 1. Skin infection - ICD9: 686.9, ICD10: L08.9 (primary diagnosis) - Begin treatment with Cephalaxin (Keflex) - No lymphangetic streaking, this was defined for patient to watch for and to seek medical care immediately if appears - Follow up for recheck in 3 days if s/s persist - CEPHALEXIN 500 MG CAPSULE - MUPIROCIN 2 % TOPICAL OINTMENT 2. Injury of right lower extremity, initial encounter - ICD9: 959.7, ICD10: S89.91XA Xray negative - XR TIBIA FIBULA 2V AP/LAT RIGHT IMPRESSION: No acute osseous abnormality Dictated by : ABIODUN CAMEJO MD 3. Injury of left knee, initial encounter - ICD9: 959.7, ICD10: S89.92XA Xray negative F/u for continued or worsening s/s - XR KNEE GENERAL 4V AP BOTH/PA BOTH/LAT/MERC LEFT IMPRESSION: No acute osseous abnormality Dictated by : MD Alesia GALLEGOS APRN.MUD ENGINEER documented in this encounter [facility] 05-16-2024 History of Presen t illness Narrative Radiology Service Progress Note PATIENT NAME: Mare Mandujano DATE OF SERVICE: May 16, 2024 TIME: 1:49 PM PATIENT IDENTITY VERIFICATION COMPLETED USING TWO (2) IDENTIFIERS: Name and Date of confirmed by patient verbally. FALL SCREENING: Has the patient had 2 falls in the last year or 1 fall with injury or currently using an Ambulatory Assistive Device (Walker, Cane, Wheelchair, Crutches, etc.)? No PATIENT GENDER DATA: Female. status: : No status: NO. PATIENT RELEVANT IMPLANT DATA REVIEWED: Yes PATIENT PRESENTS WITH AN IMPLANTABLE OR ATTACHED SYSTEMS PROGRAMMER ANALYST: No RADIOLOGY DEPARTMENT: General X-ray: Exam(s) Completed: Lower Extremity X-Ray(s): Knee, AP / Lat / Tunne / Merchant Left and Wt. Bearing and Tibia Fibula, Right PERIPHERAL IV DATA: Not applicable SIGNED BY: RT William(R) May 16, 2024 1:49 PM documented in this encounter [facility] 06-08-2023 History of Presen t illness Narrative Images from the original note were not included. Subjective Patient came in with complaints of lower right abdominal pain constipation bloating and nausea. Patient says its been on and off for over 6 months. Patient says she went to her primary care doctor about a year ago and they prescribed her stomach acid medication. She says she never picked that up she does not believe that is the issue. Patient also said she ate Road salt as a kid and was concerned that that could be causing the issue. Patient denies any fever or chills. Patient denies any changes in symptoms. Patient says she drinks 1 bottle of water a day. The history is provided by the patient. No clinical science consultant was used. Abdominal Pain Review of Systems Constitutional: Negative. Gastrointestinal: Positive for abdominal pain. Skin: Negative. Objective Physical Exam Constitutional: Appearance: Normal appearance. Pulmonary: Effort: Pulmonary effort is normal. Abdominal: General: Abdomen is flat. Palpations: Abdomen is soft. Comments: In the areas marked above patient says its more crampy than anything. Neurological: Mental Status: She is alert. PAST MEDICAL HISTORY Diagnosis Date ADHD (attention deficit hyperactivity disorder) No past surgical history on file. ALLERGIES Claritin [Loratadine] MEDICATIONS ondansetron HCl (ZOFRAN ORAL) Take by mouth. (Patient not taking: Reported on 06/08/2023) albuterol HFA (PROVENTIL HFA, VENTOLIN HFA) 90 mcg/actuation inhaler Inhale 2 Puffs as instructed every 4 hours as needed for wheezing/shortness of breath. (Patient not taking: Reported on 12/19/2021 ) Dextromethorphan-guaiFENesin (MUCINEX DM) 60-1,200 mg tab ER 12 hr Take 1 tablet by mouth twice daily. (Patient not taking: Reported on 12/19/2021 ) FAMILY HISTORY Problem Relation Age of Onset Cervical Cancer Mother Allergies Father Allergies Mother Cancer Paternal Grandmother Cancer Asthma Mother Social History Tobacco Use Smoking status: Never Passive exposure: Yes Smokeless tobacco: Never Tobacco comments: Mom smokes. Substance Use Topics Alcohol use: Never Drug use: Never ASSESSMENT/PLAN: 1. Acute constipation - ICD9: 564.00, ICD10: K59.00 - POLYETHYLENE GLYCOL 3350 17 GRAM/DOSE ORAL POWDER Patient will call primary care and follow back up for consistent abdominal discomfort. Patient was prescribed MiraLAX instructed about proper use of medication and supportive therapies. Patient was okay with this care plan. Lidia Leal APRN.RICH documented in this encounter [facility] 12-29-2022 History of Presen t illness Narrative This note was created using Kindling. Subjective Mare Mandujano is a 17 year old female. HPI 17-year-old female presents for nausea, vomiting and abdominal pain since yesterday. Patient states last night she started having right lower abdominal pain. She had 2 episodes of vomiting today. She states she had a little bit of diarrhea today as well. She has low-grade fever here. She does still have her appendix. No urinary symptoms. No URI symptoms. No sick contacts no concern for . PAST MEDICAL HISTORY Diagnosis Date ADHD (attention deficit hyperactivity disorder) No past surgical history on file. ALLERGIES Claritin [Loratadine] MEDICATIONS albuterol HFA (PROVENTIL HFA, VENTOLIN HFA) 90 mcg/actuation inhaler Inhale 2 Puffs as instructed every 4 hours as needed for wheezing/shortness of breath. (Patient not taking: Reported on 12/19/2021 ) Dextromethorphan-guaiFENesin (MUCINEX DM) 60-1,200 mg tab ER 12 hr Take 1 tablet by mouth twice daily. (Patient not taking: Reported on 12/19/2021 ) FAMILY HISTORY Problem Relation Age of Onset Cervical Cancer Mother Allergies Father Allergies Mother Cancer Paternal Grandmother Cancer Asthma Mother Social History Tobacco Use Smoking status: Never Passive exposure: Yes Smokeless tobacco: Never Tobacco comments: Mom smokes. Substance Use Topics Alcohol use: Never Drug use: Never Review of Systems Constitutional: Positive for fever. Negative for chills. HENT: Negative for congestion, ear pain and sore throat. Respiratory: Negative for cough and shortness of breath. Cardiovascular: Negative for chest pain. Gastrointestinal: Positive for abdominal pain, diarrhea and vomiting. Objective BP 120/72 Pulse 111 Temp 37.4 C (99.3 F) Resp 23 Wt 56.7 kg (125 lb) LMP 05/24/2022 SpO2 99% Physical Exam Vitals and nursing note reviewed. Constitutional: General: She is not in acute distress. Appearance: Normal appearance. She is not toxic-appearing. Cardiovascular: Rate and Rhythm: Normal rate and regular rhythm. Pulmonary: Effort: Pulmonary effort is normal. Breath sounds: Normal breath sounds. Abdominal: General: Abdomen is flat. Bowel sounds are normal. Tenderness: There is abdominal tenderness in the right lower quadrant. Skin: General: Skin is warm and dry. Neurological: Mental Status: She is alert. Assessment and Plan ASSESSMENT/PLAN: 1. RLQ abdominal pain - ICD9: 789.03, ICD10: R10.31 -Patient has right lower quadrant abdominal tenderness on exam, low-grade fever here and nausea with a few episodes of vomiting. -Due to limited diagnostic capabilities in [facility], recommended evaluation in the emergency room to rule out appendicitis or other acute surgical abdomen. She does have tenderness and some guarding of the RLQ. -Patient in agreement with plan. She will go to [facility]. ER passport sent Diagnosis and treatment plan were discussed and questions were answered to the patient's satisfaction. Pt acknowledged understanding of concepts and follow up plan. Specific signs and symptoms that would indicate the need for higher level of care were discussed in detail warranting prompt ER evaluation. SABRINA Montez documented in this encounter [facility] 06-30-2022 Miscellaneous Notes Patient calling in and given test results. Sherrell Bella RN Letter mailed to patients listed address to contact a nurse. Helga Moran LPN Phone call placed, patients mother answered phone asked to have patient return call. Helga Moran LPN Chlamydia and gonorrhea test negative. Follow-up with PCP symptoms are not improving. Jeff Castillo APRN.RICH documented in this encounter [facility] 06-26-2022 History of Presen t illness Narrative Subjective HPI Nontoxic-appearing female presents urgent care chief complaint bilateral ear irritation. Duration of symptom 1 week. Associated symptoms slight transient nausea nasal congestion bilateral ear irritation. Has not used any OTC medications no known sick contacts. Denies any significant abdominal pain. Denies any fever body aches chills nausea vomiting abdominal pain change in bowel or bladder habits. Past medical history prescription medication use allergies reviewed. .Patient presents with: Nausea: Bilateral ear irritation, denied pain, nasal congestion, 1 wk. PAST MEDICAL HISTORY Diagnosis Date ADHD (attention deficit hyperactivity disorder) History reviewed. No pertinent surgical history. ALLERGIES Claritin [Loratadine] MEDICATIONS albuterol HFA (PROVENTIL HFA, VENTOLIN HFA) 90 mcg/actuation inhaler Inhale 2 Puffs as instructed every 4 hours as needed for wheezing/shortness of breath. (Patient not taking: Reported on 12/19/2021 ) Dextromethorphan-guaiFENesin (MUCINEX DM) 60-1,200 mg tab ER 12 hr Take 1 tablet by mouth twice daily. (Patient not taking: Reported on 12/19/2021 ) FAMILY HISTORY Problem Relation Age of Onset Cervical Cancer Mother Allergies Father Allergies Mother Cancer Paternal Grandmother Cancer Asthma Mother Social History Tobacco Use Smoking status: Never Passive exposure: Yes Smokeless tobacco: Never Tobacco comments: Mom smokes. Substance Use Topics Alcohol use: Never Drug use: Never BP 98/64 Pulse 93 Temp 37.2 C (98.9 F) Resp 16 Wt 54.4 kg (120 lb) LMP 05/24/2022 SpO2 97% Review of Systems Constitutional: Negative for chills, fever and malaise/fatigue. HENT: Positive for congestion. Negative for ear discharge, ear pain, sinus pain and sore throat. Eyes: Negative for blurred vision, pain, discharge and redness. Respiratory: Negative for cough, hemoptysis, sputum production, shortness of breath, wheezing and stridor. Cardiovascular: Negative for chest pain. Gastrointestinal: Positive for nausea. Negative for abdominal pain, diarrhea and vomiting. Musculoskeletal: Positive for myalgias. Skin: Negative for itching and rash. Neurological: Negative for dizziness and headaches. Objective Physical Exam Constitutional: General: She is not in acute distress. Appearance: She is not diaphoretic. HENT: Head: Normocephalic. Right Ear: Tympanic membrane, ear canal and external ear normal. Left Ear: Tympanic membrane, ear canal and external ear normal. Nose: Congestion present. Mouth/Throat: Mouth: Mucous membranes are moist. Pharynx: Oropharynx is clear. No oropharyngeal exudate or posterior oropharyngeal erythema. Eyes: Conjunctiva/sclera: Conjunctivae normal. Pupils: Pupils are equal, round, and reactive to light. Cardiovascular: Rate and Rhythm: Normal rate and regular rhythm. Heart sounds: Normal heart sounds. Pulmonary: Effort: Pulmonary effort is normal. No tachypnea, accessory muscle usage or respiratory distress. Breath sounds: Normal breath sounds. No stridor. No wheezing, rhonchi or rales. Abdominal: General: There is no distension. Palpations: Abdomen is soft. Tenderness: There is no abdominal tenderness. There is no guarding or rebound. Musculoskeletal: Cervical back: Normal range of motion and neck supple. No rigidity or tenderness. Lymphadenopathy: Cervical: No cervical adenopathy. Skin: General: Skin is warm and dry. Neurological: Mental Status: She is alert and oriented to person, place, and time. ASSESSMENT/PLAN: 1. Screening for STD (sexually transmitted disease) - ICD9: V74.5, ICD10: Z11.3 (primary diagnosis) - GC/CHLAMYDIA DNA DET 2. Nausea - ICD9: 787.02, ICD10: R11.0 - HCG QUAL UR B/O - COVID WITH FLUA+B, ROUTINE 3. Suspected COVID-19 virus infection - ICD9: V01.79, ICD10: Z20.822 - COVID WITH FLUA+B, ROUTINE Patient states she did have unprotected intercourse. Menstrual cycle was slightly late. test in office was negative. Will test for STDs due to unprotected intercourse. Additionally, COVID-19 test will be ordered due to nausea and nasal congestion and fatigue. Patient was educated on supportive therapies. Patient will follow up with primary care provider as needed. Patient was instructed to immediately proceed to emergency room for any new, worsening, or symptoms lasting longer than anticipated. The patient's clinical presentation is otherwise unremarkable at this time. Based on exam and clinical finding, the patient is stable for discharge. Plan of care was discussed with patient. Patient verbalizes understanding and agrees to plan of care. This note was generated using Gaopeng software. It may contain errors in wording, punctuation, or spelling. Jeff Castillo APRN.CNP documented in this encounter [facility] 01-16-2022 History of Presen t illness Narrative POPULATION HEALTH NAVIGATION OUTREACH Action/FYI Please schedule in Orthopedics anyone can assist Acute pain of right knee [M25.561] Pt identified by name and : YES, via phone Outreach Outcome/Action Spoke to patient or caregiver: Patient will return the call or ask for return call Reason for Outreach Care Gap or Scheduling/Wellness visits Payer: Payor: TREMAYNE / Plan: TREMAYNE OAP / Product Type: Open Access / Care Gap Reviewed:: Follow-up appointment Reminder: Reminder note to check Health Maintenance for items below Health Maintenance items due: COVID-19 VACCINE(1) Never done MENINGOCOCCAL B: Consider based on risk(1 of 2 - Risk Bexsero 2-dose series) Never done DTAP,TDAP,TD(6 - Tdap) due on 2014 HPV VACCINE(1 - 2-dose series) Never done DEPRESSION SCREENING Never done MENINGOCOCCAL CONJUGATE(1 - 2-dose series) Never done GC (GONORRHEA) SCREENING (18-24) due on 10/16/2021 CHLAMYDIA SCREENING (18-24) due on 10/16/2021 Message Sent to Practice: No Navigation Signature: Ashia Vidal January 16, 2022 12:53 PM documented in this encounter [facility] 12-23-2021 Hospital Discharg e instructions Patient Education 12/23/2021 14:42:15 URI, Viral, No Abx (Adult) Viral Upper Respiratory Illness (Adult) You have a viral upper respiratory illness (URI), which is another term for the common cold. This illness is contagious during the first few days. It is spread through the air by coughing and sneezing. It may also be spread by direct contact (touching the sick person and then touching your own eyes, nose, or mouth). Frequent handwashing will decrease risk of spread. Most viral illnesses go away within 7 to 10 days with rest and simple home remedies. Sometimes the illness may last for several weeks. Antibiotics will not kill a virus, and they are generally not prescribed for this condition. Home care If symptoms are severe, rest at home for the first 2 to 3 days. When you resume activity, don't let yourself get too tired. Don't smoke. If you need help stopping, talk with your healthcare provider. Avoid being exposed to cigarette smoke (yours or others ). You may use acetaminophen or ibuprofen to control pain and fever, unless another medicine was prescribed. If you have chronic liver or kidney disease, have ever had a stomach ulcer or gastrointestinal bleeding, or are taking blood-thinning medicines, talk with your healthcare provider before using these medicines. Aspirin should never be given to anyone under 18 years of age who is ill with a viral infection or fever. It may cause severe liver or brain damage. Your appetite may be poor, so a light diet is fine. Stay well hydrated by drinking 6 to 8 glasses of fluids per day (water, soft drinks, juices, tea, or soup). Extra fluids will help loosen secretions in the nose and lungs. Jdan-pey-gaamocf cold medicines will not shorten the length of time you re sick, but they may be helpful for the following symptoms: cough, sore throat, and nasal and sinus congestion. If you take prescription medicines, ask your healthcare provider or pharmacist which lirm-avf-pvztlfe medicines are safe to use. (Note: Don't use decongestants if you have high blood pressure.) Follow-up care Follow up with your healthcare provider, or as advised. When to seek medical advice Call your healthcare provider right away if any of these occur: Cough with lots of colored sputum (mucus) Severe headache; face, neck, or ear pain Difficulty swallowing due to throat pain Fever of 100.4 F (38 C) or higher, or as directed by your healthcare provider Call 911 Call 911 if any of these occur: Chest pain, shortness of breath, wheezing, or difficulty breathing Coughing up blood Very severe pain with swallowing, especially if it goes along with a muffled voice [phone] [employer] [address] [place] [address]. All rights reserved. This information is not intended as a substitute for professional medical care. Always follow your healthcare professional's instructions. Follow Up Care 12/23/2021 14:24:00 With:Go to emergency room if symptoms worsen Address:Unknown When:2-4 days With:ANI LINK MD Address: [address] [place] [phone] When:2-4 days [facility] 07-30-2020 History of Presen t illness Narrative Radiology Service Progress Note PATIENT NAME: Mare Mandujano DATE OF SERVICE: July 30, 2020 TIME: 4:03 PM PATIENT IDENTITY VERIFICATION COMPLETED USING TWO (2) IDENTIFIERS: Name and Date of confirmed by patient verbally. FALL SCREENING: Has the patient had 2 falls in the last year or 1 fall with injury or currently using an Ambulatory Assistive Device (Walker, Cane, Wheelchair, Crutches, etc.)? No PATIENT GENDER DATA: Female. status: : No status: NO. PATIENT RELEVANT IMPLANT DATA REVIEWED: Not Applicable RADIOLOGY DEPARTMENT: General X-ray: Exam(s) Completed: Upper Extremity X-Ray(s): Shoulder, AP / TRUE AP / AXILLARY right : PERIPHERAL IV DATA: Not applicable SIGNED BY: RT Norberto July 30, 2020 4:03 PM documented in this encounter [facility] Evaluation + Plan note No data available for this section [facility] Evaluation note No assessment inform ation available [facility] Work Phone: Evaluation note Diagnosis Screening for STD (sexually transmitted disease)- Primary Screening examination for venereal disease Nausea Nausea alone Suspected COVID-19 virus infection documented in this encounter [facility] note* Diagnosis RLQ abdominal pain- Primary Abdominal pain, right lower quadrant documented in this encounter [facility] note* Diagnosis Acute constipation- Primary Unspecified constipation documented in this encounter [facility] note* Diagnosis Abdominal pain, unspecified abdominal location documented in this encounter [facility] note* Diagnosis Skin infection- Primary Unspecified local infection of skin and subcutaneous tissue Injury of right lower extremity, initial encounter Injury of left knee, initial encounter Injury of left knee, initial encounter documented in this encounter [facility] note* Diagnosis Injury of left knee, initial encounter documented in this encounter [facility] note* Diagnosis Acute pain of right knee documented in this encounter [facility] note* Diagnosis Acute pain of right shoulder [facility] No data available for this section [facility] Reason for referral (narrative)* Diagnostic Procedure Only (Urgent) - Closed Specialty Diagnoses / Procedures Referred By Contac t Referred To Contact XR IMAGING Diagnoses Injury of left knee, initial encounter Procedures XR KNEE GENERAL 4V AP BOTH/PA BOTH/LAT/MERC LEFT RADIOLOGIC EXAM KNEE COMPLETE 4/MORE VIEWS Alesia Mccloud APRN.MUD ENGINEER [address] [place] [address] X[facility] Imaging [place] [address] Referral ID Status Reason Start Date Expiration Date V isits Requested Visits Authorized [id number] Closed Auto-Generate d Referral 05/16/2024 06/15/2025 1 1 * Diagnostic Procedure Only (Urgent) - Closed Specialty Diagnoses / Procedures Referred By Contac t Referred To Contact XR IMAGING Diagnoses Injury of right lower extremity, initial encounter Procedures XR TIBIA FIBULA 2V AP/LAT RIGHT RADIOLOGIC EXAMINATION TIBIA & FIBULA 2 VIEWS Alesia Mccloud APRN.MUD ENGINEER [address] [place] [address] [place] [address] Referral ID Status Reason Start Date Expiration Date V isits Requested Visits Authorized [id number] Closed Auto-Generate d Referral 05/16/2024 06/15/2025 1 1 [facility] for referral (narrative)* Diagnostic Procedure Only (Urgent) - Closed Specialty Diagnoses / Procedures Referred By Contac t Referred To Contact XR IMAGING Diagnoses Injury of left knee, initial encounter Procedures XR KNEE GENERAL 4V AP BOTH/PA BOTH/LAT/MERC LEFT RADIOLOGIC EXAM KNEE COMPLETE 4/MORE VIEWS Alesia Mccloud APRN.MUD ENGINEER [address] [place] [address] [place] [address] Referral ID Status Reason Start Date Expiration Date V isits Requested Visits Authorized [id number] Closed Auto-Generate d Referral 05/16/2024 06/15/2025 1 1 [facility] for referral (narrative)* Diagnostic Procedure Only (Urgent) - Closed Specialty Diagnoses / Procedures Referred By Contac t Referred To Contact XR IMAGING Diagnoses Acute pain of right knee Procedures XR KNEE GENERAL 4V AP BOTH/PA BOTH/LAT/MERC RIGHT RADIOLOGIC EXAM KNEE COMPLETE 4/MORE VIEWS Lidia Leal APRN.MUD ENGINEER [address] [place] [address] [place] [address] Referral ID Status Reason Start Date Expiration Date V isits Requested Visits Authorized [id number] Closed Auto-Generate d Referral 12/19/2021 01/18/2023 1 1 [facility] for visit Narrative* Diagnostic Procedure Only (Urgent) - Closed Specialty Diagnoses / Procedures Referred By Contac t Referred To Contact XR IMAGING Diagnoses Injury of left knee, initial encounter Procedures XR KNEE GENERAL 4V AP BOTH/PA BOTH/LAT/MERC LEFT RADIOLOGIC EXAM KNEE COMPLETE 4/MORE VIEWS Alesia Mccloud APRN.MUD ENGINEER [address] [place] [address] [place] [address] Referral ID Status Reason Start Date Expiration Date V isits Requested Visits Authorized [id number] Closed Auto-Generate d Referral 05/16/2024 06/15/2025 1 1 [facility] Diagnostic Procedure Only (Urgent) - Closed Specialty Diagnoses / Procedures Referred By Contac t Referred To Contact XR IMAGING Diagnoses Acute pain of right knee Procedures XR KNEE GENERAL 4V AP BOTH/PA BOTH/LAT/MERC RIGHT RADIOLOGIC EXAM KNEE COMPLETE 4/MORE VIEWS Lidia Leal, TOP KNITTER.MUD ENGINEER [address] [place] [address] [place] [address] Referral ID Status Reason Start Date Expiration Date V isits Requested Visits Authorized [id number] Closed Auto-Generate d Referral 12/19/2021 01/18/2023 1 1 [facility] Summary Purpose Family History No Family History Records FoundNo Family History Records FoundNo Family History Records FoundNo Family History Records Found Advance Directives No Advanced Directives Records Found Advance Directive Response Recorded Date/ Time Living Will No April 14, 2022 11:17pm Power of Alarm Installer No April 14 11:17pm Advance Directive Response Recorded Date/ Time Living Will No July 30 8:56am Power of Alarm Installer No July 30, 2022 8:56am Advance Directive Response Recorded Date/ Time Living Will No December 29, 2022 6:37pm Power of Alarm Installer No December 29 6:37pm Chief Complaint and Reason for Visit Chief Complaint LAC Chief Complaint LAC PAINFUL PERIOD Chief Complaint ABDONIMAL PAIN Health Concerns Infection Onset Date Last Indicated Resolved Time COVID-19 Rule-Out 06/26/2022 06/26/2022 Infection Onset Date Last Indicated Resolved Time COVID-19 Rule-Out 06/26/2022 06/26/2022 06/27/2022 4:46 AM EDT Additional Source Comments Care Team (unrecognized sect ion and content) Terrazzo Polisher Relationship Specialty Start Date End Date Ani Link [address] [place] [address] PCP - General Pediatrics 07/04/14 Terrazzo Polisher Relationship Specialty Start Date End Date [place] [address] [place] [address] PCP - General Pediatrics 07/04/14 Terrazzo Polisher Relationship Specialty Start Date End Date Ani Link [address] [place] [address] PCP - General Pediatrics 07/04/14 Terrazzo Polisher Relationship Specialty Start Date End Date Ani Link [address] [place] [address] PCP - General Pediatrics 07/04/14 Terrazzo Polisher Relationship Specialty Start Date End Date Ani Link [address] [place] [address] PCP - General Pediatrics 07/04/14 Terrazzo Polisher Relationship Specialty Start Date End Date Ani Link MD PCP - General Pediatrics 11/24/13 Rena Dior P, TOP KNITTER-MUD ENGINEER [address] [facility] [address] [place], [place] [id number] Nurse Practitioner Medical Clinical Genetics 07/28/22 Team Status: Active Member Role Status Dates Dr. Ani Link MD Family Provider Active Dr. Ani Link MD Primary Care Provider Active Team Status: Inactive Member Role Status Dates Dr. Ani Link MD Primary Care Provider Active Dr. Bhargavi Jackson DO Attending Provider, Referring Provider Active Terrazzo Polisher Relationship Specialty Start Date End Date Ani Link MD [address] [place] [address] PCP - General Pediatrics 07/04/14 Terrazzo Polisher Relationship Specialty Start Date End Date Ani Link MD [address] [place] [address] PCP - General Pediatrics 07/04/14 Terrazzo Polisher Relationship Specialty Start Date End Date Ani Link MD [address] [place] [address] PCP - General Pediatrics 07/04/14 Terrazzo Polisher Relationship Specialty Start Date End Date Ani Link MD [address] [place] [address] PCP - General Pediatrics 07/04/14 INFORMATION SOURCE (unrecogn ized section and content) DATE CREATED AUTHOR 01/07/2022 [facility] ([place]) DATE CREATED AUTHOR AUTHOR'S ORGANIZ ATION 01/04/2023 [facility] DATE CREATED AUTHOR AUTHOR'S ORGANIZ ATION 10/28/2023 [facility] DATE CREATED AUTHOR AUTHOR'S ORGANIZ ATION 06/26/2025 [facility] Source Comments (unrecognize d section and content) In the event this informatio n is protected by the Federal Confidentiality of Alcohol and Drug Abuse Patient Records regulations: The Federal rules restrict any use of the information to criminally investigate or prosecute any alcohol or drug abuse patient.[facility] the event this information is protected by the Federal Confidentiality of Alcohol and Drug Abuse Patient Records regulations: The Federal rules restrict any use of the information to criminally investigate or prosecute any alcohol or drug abuse patient.[facility] the event this information is protected by the Federal Confidentiality of Alcohol and Drug Abuse Patient Records regulations: The Federal rules restrict any use of the information to criminally investigate or prosecute any alcohol or drug abuse patient.[facility] the event this information is protected by the Federal Confidentiality of Alcohol and Drug Abuse Patient Records regulations: The Federal rules restrict any use of the information to criminally investigate or prosecute any alcohol or drug abuse patient.[facility] the event this information is protected by the Federal Confidentiality of Alcohol and Drug Abuse Patient Records regulations: The Federal rules restrict any use of the information to criminally investigate or prosecute any alcohol or drug abuse patient.[facility] the event this information is protected by the Federal Confidentiality of Alcohol and Drug Abuse Patient Records regulations: The Federal rules restrict any use of the information to criminally investigate or prosecute any alcohol or drug abuse patient.[facility]In the event this information is protected by the Federal Confidentiality of Alcohol and Drug Abuse Patient Records regulations: The Federal rules restrict any use of the information to criminally investigate or prosecute any alcohol or drug abuse patient.[facility] HospitalIn the event this information is protected by the Federal Confidentiality of Alcohol and Drug Abuse Patient Records regulations: The Federal rules restrict any use of the information to criminally investigate or prosecute any alcohol or drug abuse patient.[facility]In the event this information is protected by the Federal Confidentiality of Alcohol and Drug Abuse Patient Records regulations: The Federal rules restrict any use of the information to criminally investigate or prosecute any alcohol or drug abuse patient.[facility] Goals (unrecognized section and content) Goals may be documented in a n alternate section Reason for Visit (unrecogniz ed section and content) Reason Comments Nausea Bilateral ear irrita tion, denied pain, nasal congestion, 1 wk. Reason Comments Results Reason Comments Nausea & Vomiting Diarrhea, stomach ac he x 1 day Reason Comments Abdominal Pain Lower right abdomina l pain, constipation, bloating, nausea x 6 months Reason Comments left knee and right ankle pain Wrecked h er scooter yesterday FOR RECORDS PERTAINING TO PATIENTS WHO ARE OR HAVE BEEN ENROLLED IN A CHEMICAL DEPENDENCY/SUBSTANCEABUSE PROGRAM, SOME INFORMATION MAY BE OMITTED. This clinical summary was aggregated from multiple sources. Caution should be exercised in using it in the provision of clinical care. This summary normalizes information from multiple sources, and as a consequence, information in this document may materially change the coding, format and clinical context of patient data. In addition, data may be omitted in some cases. CLINICAL DECISIONS SHOULD BE BASED ON THE PRIMARY CLINICAL RECORDS. [facility]. provides no warranty or guarantee of the accuracy or completeness of information in this document.
[2025-09-15 20:22] LABS: Anion Gap 10 (7-18); BUN 10 mg/dL (4-19); BUN/Creat Ratio 12.5 RATIO (10-20); Calcium,Total 9.3 mg/dL (7.6-11.0); Carbon Dioxide 25.2 mmol/L (20.0-29.0); Chloride 103 mmol/L (96-106); Estimated Creatinine Clearance 86.81 ml/min (50-250); Glucose 68 mg/dL (70-99); Potassium 4.3 mmol/L (3.5-5.1)
[2025-09-15 21:00] VITALS: BP 115/76; PULSE 93; RESP 16; O2SAT 100
[2025-09-15 23:04] VITALS: BP 112/64; PULSE 81; O2SAT 97
[2025-09-15 23:21] VITALS: BP 112/64; PULSE 81; RESP 16; TEMP 36.6; O2SAT 97
== END 2025-09-15 23:26 | disposition home or self-care (01) ==
PROVIDERS: Emergency Provider Emergency Medicine; PCP Pediatrics; Visit Provider Emergency Medicine
DX: J11.1 Influenza due to unidentified influenza virus with other respiratory manifestations (principal); R11.2 Nausea with vomiting, unspecified; E86.0 Dehydration; F17.290 Nicotine dependence, other tobacco product, uncomplicated
CPT/HCPCS: 71045; 80048; 81025; 85025; 87631; 93005; 96361; 96374; 96375; 96376; 99285; A4216; J2405